=== PATIENT | female | born 1935 | race Caucasian/White ===

== ENCOUNTER → 2016-09-27 | Outpatient (CLI) | payer OTHER ==
[2016-02-14 03:48] VITALS: BP 164/88
--- NOTE | 2016-09-28 14:55 | MG ---
HISTORY: SCREENING Comparison: September 01, 2015 FINDINGS: Bilateral CC and MLO projections of the right and left breast were obtained. Heterogeneously dense fibroglandular tissue is seen to be present. No significant architectural distortion, mass or clust ered microcalcifications can be observed to suggest malignancy. No skin thickening or nipple retrac tion is appreciated. No pathological lymphadenopathy can be identified. Benign-appearing calcifica tions scattered throughout the right and left breasts are observed. IMPRESSION: NO RADIOGRAPHIC EVIDENCE OF MALIGNANCY. ACR CATEGORY 2 - benign findings. FOLLOW-UP EXAM 1 YEAR. Diagnostic CAD was utilized and reviewed. * 0 (ZERO) - ASSESSMENT INCOMPLETE; ADDITIONAL IMAGING IS NEEDED. * 1/1 (ONE) - NEGATIVE. * 2/II (TWO) - BENIGN FINDINGS. * 3/III (THREE) - PROBABLY BENIGN FINDING; SHORT INTERVAL FOLLOW-UP SUGGESTED. * 4/IV (FOUR) - SUSPICIOUS ABNORMALITY; BIOPSY SHOULD BE CONSIDERED. * 5/V - HIGHLY SUSPICIOUS OF MALIGNANCY; BIOPSY SHOULD BE PERFORMED. A NEGATIVE X-RAY REPORT SHOULD NOT DELAY BIOPSY IF A DOMINANT OR CLINICALLY SUSPICIOUS MASS IS PRESENT; 4 TO 8 PERCENT OF CANCERS ARE NOT IDENTIFIED BY X-RAY. A NEG ATIVE REPORT MAY REINFORCE THE CLINICAL IMPRESSION. ADENOSIS AND DENSE BREASTS MAY OBSCURE AN UNDER LYING NEOPLASM. Reported By:
== END ==
LOC: RAD 09:40
PROVIDERS: ATTEND Internal Medicine
DX: Z12.31 Encounter for screening mammogram for malignant neoplasm of breast (principal)
CPT/HCPCS: 77067

== ENCOUNTER 2017-09-04 06:47 | Inpatient (IN) ==
--- NOTE | 2017-09-04 07:05 | DR.GENAD ---
HPI - Nurses notes reviewed Nurses Notes Review: Yes - Source History Provided: Patient, Family Member - Mode of Arrival Mode of Arrival: Wheelchair - Timing Came on: Suddenly - Duration Duration: Constant Duration: Hours - Severity Severity: Moderate <JOHNNA GAMBLE - Last Filed: 09/04/17 08:32> - PCP Primary Care Physician: Joseluis <BILLY GILL - Last Filed: 09/04/17 09:12> PMH - PMH Past Medical History: Arthritis Past Surgical History: Yes Surgical History: Abdominal Surgery, Cholecystectomy, Hysterectomy, Ortho Surgery - Social History Do you use any recreational Drugs:: No <JOHNNA GAMBLE - Last Filed: 09/04/17 08:32> ROS - Review of Systems Constitutional: No Symptoms Reported Eyes: No Symptoms Reported ENTM: No Symptoms Reported Respiratoy: No Symptoms Reported Cardiovascular: No Symptoms Reported Gastrointestinal/Abdominal: No Symptoms Reported Genitourinary: No Symptoms Reported Neurological: No Symptoms Reported Musculoskeletal: Back Pain, Back Integumentary: No Symptoms Reported Hematologic/Lymphatic: No Symptoms Reported All Other Systems: Reviewed and Negative <JOHNNA GAMBLE - Last Filed: 09/04/17 08:32> PE - General Limitations: No Limitations General Appearance: Alert - Head Head Exam: Normal Inspection - Eyes Eye exam: Normal Appearance - ENT ENT Exam: Normal External Ear Exam External Ear Exam: Normal External Inspection TM/Canal Exam: Bilateral Normal Nose Exam: Normal Nose Exam Mouth Exam: Normal Inspection Throat Exam: Normal Inspection - Neck Neck Exam: Trachea Midline - Chest Chest Inspection: Symmetric Chest Wall Rise - Respiratory Respiratory Exam: Normal Lung Sounds Bilat Respiratory Exam: Bilateral Rhonchi, Lower Rhonchi - Cardiovascular Cardiovascular Exam: Regular Rate, Normal Rhythm, Normal Heart Sounds - Abdominal Exam Abdominal Exam: Normal Bowel Sounds, Soft. negative: Tenderness - Extremities Extremities Exam: Normal Inspection - Back Back Exam: Tenderness (C SPIN, T SPINE AND L SPINE TENDERNESS.) - Neurologic Neurological Exam: Alert, Oriented X3 - Psychiatric Psychiatric Exam: Anxious - Skin Skin Exam: Normal Color <JOHNNA GAMBLE - Last Filed: 09/04/17 08:32> - Vital Signs Vitals: Temperature 98.3 F Pulse Rate 68 Respiratory Rate 16 Blood Pressure 132/63 O2 Sat by Pulse Oximetry 100 MDM - Additional Information Additional Information Obtained From: Family - Differential Diagnosis Differential Diagnosis: CONTUSION, STRAIN, SPRAIN, FRACTURE OF THE BACK AND NECK. <JOHNNA GAMBLE - Last Filed: 09/04/17 08:32> Course - Treatment Treatment: SEE ORDERS. - Education/Counseling Education/Counseling: Patient, Family, Education Educated On: Diagnosis <JOHNNA GAMBLE - Last Filed: 09/04/17 08:32> - Reevaluation 1st: Improved (Medicated with dilaudid 1mg IV for pain relief,) - Consultation Called: 09:00 (Dr Huggins agreed to admit for further treatment) <BILLY GILL - Last Filed: 09/04/17 09:12> ROR - Labs Reviewed Result Diagrams: 09/04/17 06:52 09/04/17 06:52 - XRAY XRAY Interpreted by: Radiologist (CT C-spine: No evidence for acute fracture, moderate facet joint osteoarthritis, CT Thoracic spine: Midl compressin of the superior endplate of T9 of unknown age, prominent Schmorl"s node in the superior endplate of T11, Distended esophagus, Lumbar Spine: Old vertebrophasties for old compressin fractures of L2 and L4. No definite acute fracture, Lower Lumbar facet joint osteoarthritis.) <BILLY GILL - Last Filed: 09/04/17 09:12> - Labs Reviewed Laboratory: WBC 6.9 X10^3/uL (3.6-10.0) 09/04/17 06:52 RBC 4.48 X10^6/uL (3.5-5.4) 09/04/17 06:52 Hgb 13.4 g/dL (12.0-16.0) 09/04/17 06:52 Hct 39.2 % (36.0-47.0) 09/04/17 06:52 MCV 87.6 fL (80.0-100.0) 09/04/17 06:52 MCH 30.0 pg (27.0-34.0) 09/04/17 06:52 MCHC 34.2 g/dL (33.0-35.0) 09/04/17 06:52 RDW 13.1 % (11.6-16.5) 09/04/17 06:52 Plt Count 179 X10^3/uL (150.0-450.0) 09/04/17 06:52 MPV 8.5 fL (7.4-11.0) 09/04/17 06:52 Neut % (Auto) 64.9 % (42.0-75.0) 09/04/17 06:52 Lymph % (Auto) 17.5 % (21.0-51.0) L 09/04/17 06:52 [place] % (Auto) 12.4 % (0.0-13.0) 09/04/17 06:52 Eos % (Auto) 4.5 % (0.9-2.9) H 09/04/17 06:52 Baso % (Auto) 0.7 % (0.2-1.0) 09/04/17 06:52 Neut # (Auto) 4.5 x10^3/uL (2.2-4.8) 09/04/17 06:52 Lymph # (Auto) 1.2 X10^3/uL (1.3-2.9) L 09/04/17 06:52 [place] # (Auto) 0.9 x10^3/uL (0.3-0.8) H 09/04/17 06:52 Eos # (Auto) 0.3 x10^3/uL (0.0-0.2) H 09/04/17 06:52 Baso # (Auto) 0.0 X10^3/uL (0.0-0.1) 09/04/17 06:52 Absolute Nucleated RBC 0.1 /100WBC 09/04/17 06:52 Sodium 123 mmol/L (136-145) L* 09/04/17 06:52 Corrected Sodium TNP 09/04/17 06:52 Potassium 3.9 mmol/L (3.5-5.1) 09/04/17 06:52 Chloride 89 mmol/L (98-107) L 09/04/17 06:52 Carbon Dioxide 30.5 mmol/L (21-32) 09/04/17 06:52 BUN 11 mg/dL (7-18) 09/04/17 06:52 Creatinine 0.75 mg/dL (0.55-1.02) 09/04/17 06:52 Est GFR (MDRD) Af Amer > 60 (>60) 09/04/17 06:52 Est GFR (MDRD) Non-Af > 60 (>60) 09/04/17 06:52 Glucose 78 mg/dL (65-99) 09/04/17 06:52 Calcium 8.4 mg/dL (8.5-10.1) L 09/04/17 06:52 Corrected Calcium 9.1 mg/dL (8.5-10.1) 09/04/17 06:52 Total Bilirubin 0.40 mg/dL (0.2-1.0) 09/04/17 06:52 AST 28 Units/L (15-37) 09/04/17 06:52 ALT 37 Units/L (12-78) 09/04/17 06:52 Alkaline Phosphatase 126 Units/L (46-116) H 09/04/17 06:52 Creatine Kinase 54 Units/L (26-192) 09/04/17 06:52 CK-MB (CK-2) 1.0 ng/mL (0-4.0) 09/04/17 06:52 CK/CKMB % Calc 1.9 % (<4) 09/04/17 06:52 Troponin I < 0.02 ng/mL (0-1.5) 09/04/17 06:52 Total Protein 5.9 g/dL (6.4-8.2) L 09/04/17 06:52 Albumin 3.1 g/dL (3.4-5.0) L 09/04/17 06:52 Globulin 2.8 g/dL (2.5-4.5) 09/04/17 06:52 Albumin/Globulin Ratio 1.1 Ratio (1.1-2.1) 09/04/17 06:52 <JOHNNA GAMBLE - Last Filed: 09/04/17 08:32> <BILLY GILL - Last Filed: 09/04/17 09:12> - Diagnosis Discharge Problem: Hyponatremia - Discharge Plan Condition: Stable - Follow ups/Referrals Follow ups/Referrals: Milind Huggins [Primary Care Provider] - 3 days - Instructions
--- NOTE | 2017-09-04 07:52 | CT ---
History: Fall last night with cervical pain Study: CT cervical spine without contrast. Sagittal and coronal reformations were provided. Findings: There is normal alignment without fracture demonstrated. There are prominent osteophytes in the cervical facet joints. There are mild osteophytes about the cervical disc spaces with mild C5-6 disc space narrowing. Impression: 1. No evidence for acute fracture 2. Moderate facet joint osteoarthritis Reported By:
--- NOTE | 2017-09-04 07:59 | CT ---
History: Back pain after fall last night Study: CT thoracic spine without contrast. Sagittal and coronal reformations were provided. Comparison: None Findings: There is normal alignment. There is osteopenia. There is central depression of the superior endplate of T11, as seen on prior exams. There is mild compression of T9 involving the superior endp late. No disc protrusion is suggested. There are mild degenerative osteophytes diffusely. The esophagus is fluid distended. There is a hiatal hernia. Impression: 1. Mild compression of the superior endplate of T9 of unknown age 2. Prominent Schmorl's node in the superior endplate of T11 3. Distended esophagus Reported By:
[2017-09-04 08:00] LABS: BASOPHILS % (AUTO) 0.7 % (0.2-1.0); EOSINOPHILS # (AUTO) 0.3 x10^3/uL (0.0-0.2); EOSINOPHILS % (AUTO) 4.5 % (0.9-2.9); HEMATOCRIT 39.2 % (36.0-47.0); HEMOGLOBIN 13.4 g/dL (12.0-16.0); LYMPHOCYTES # (AUTO) 1.2 X10^3/uL (1.3-2.9); LYMPHOCYTES % (AUTO) 17.5 % (21.0-51.0); MEAN CORPUSCULAR HGB CONC 34.2 g/dL (33.0-35.0); MEAN CORPUSCULAR VOLUME 87.6 fL (80.0-100.0); MEAN PLATELET VOLUME 8.5 fL (7.4-11.0); MONOCYTES # (AUTO) 0.9 x10^3/uL (0.3-0.8); MONOCYTES % (AUTO) 12.4 % (0.0-13.0); NEUTROPHILS # (AUTO) 4.5 x10^3/uL (2.2-4.8); NEUTROPHILS % (AUTO) 64.9 % (42.0-75.0); PLATELET COUNT 179 X10^3/uL (150.0-450.0); RED BLOOD COUNT 4.48 X10^6/uL (3.5-5.4); RED CELL DISTRIBUTION WIDTH 13.1 % (11.6-16.5); WHITE BLOOD COUNT 6.9 X10^3/uL (3.6-10.0)
--- NOTE | 2017-09-04 08:13 | CT ---
History: Fall last night with back pain Study: CT lumbar spine without contrast. Sagittal and coronal reformations were provided. Comparison: MRI lumbar spine dated March 21 2014 Findings: There has been vertebral plasty at L2 and at L4 with compression deformities. These are old burst fractures with mild encroachment into the vertebral canal by the posterior margins of the L2 a nd L4 vertebra. No acute fracture is suggested. There is osteopenia. There are degenerative osteophyt es about the L4-5 facet joints. The sacroiliac joints are unremarkable. There are osteophytes about the L5-S1 facet joints as well. Impression: 1. Old vertebroplasties for old compression fractures of L2 and L4. No definite acute fracture. 2. Lower lumbar facet joint osteoarthritis Reported By:
[2017-09-04 08:22] LABS: ALANINE AMINOTRANSFERASE 37 Units/L (12-78); ALBUMIN 3.1 g/dL (3.4-5.0); ALKALINE PHOSPHATASE 126 Units/L (46-116); ASPARTATE AMINO TRANSFERASE 28 Units/L (15-37); BLOOD UREA NITROGEN 11 mg/dL (7-18); CALCIUM 8.4 mg/dL (8.5-10.1); CARBON DIOXIDE 30.5 mmol/L (21-32); CHLORIDE 89 mmol/L (98-107); CKMB % 1.9 % (<4); COR CA(FOR HYPOALB) 9.1 mg/dL (8.5-10.1); CREATINE KINASE 54 Units/L (26-192); CREATININE 0.75 mg/dL (0.55-1.02); TOTAL PROTEIN 5.9 g/dL (6.4-8.2); TROPONIN I < 0.02 ng/mL (0-1.5); eGFR NON BLACK RACES > 60 (>60)
[2017-09-04 08:23] LABS: SODIUM 123 mmol/L (136-145)
[2017-09-04] MEDS ORDERED: SODIUM CHL HYPERTONIC ** 3% ** 500 ML IV NR (08:43)
[2017-09-04] MEDS ORDERED: MIRALAX POWDER (255 GRAMS BTL) PO PRN (09:18)
[2017-09-04] MEDS ORDERED: PROMETHAZINE 25 MG PO PRN (09:18)
[2017-09-04] MEDS ORDERED: DOCUSATE CALCIUM 240 MG PO PRN (09:18)
[2017-09-04] MEDS ORDERED: ABATACEPT SC SCH (09:30)
[2017-09-04] MEDS ORDERED: PHENERGAN TAB 25 MG PO ONE (09:46)
[2017-09-04] MEDS: DILAUDID INJ IVP PRN ×2 (09:51→19:54)
[2017-09-04 11:01] LABS: BILIRUBIN,URINE NEGATIVE (NEGATIVE); BLOOD/HEMOGLOBIN,URINE NEGATIVE (NEGATIVE); GLUCOSE, URINE NEGATIVE (NEGATIVE); KETONES,URINE NEGATIVE (NEGATIVE); LEUKOCYTE ESTERASE ,URINE NEGATIVE (NEGATIVE); NITRITES,URINE NEGATIVE (NEGATIVE); PROTEIN,URINE NEGATIVE (NEGATIVE); UROBILINOGEN,URINE NORMAL (NORMAL)
[2017-09-04] MEDS ORDERED: COLACE CAP 100 MG PO PRN (11:02)
[2017-09-04 11:03] LABS: APPEARANCE,URINE CLEAR (CLEAR); COLOR,URINE YELLOW (YELLOW)
[2017-09-04] MEDS ORDERED: PHENERGAN TAB 25 MG PO PRN (11:04)
[2017-09-04] MEDS ORDERED: HumuLIN R ONE (11:11)
[2017-09-04 12:48] LABS: BLOOD UREA NITROGEN 10 mg/dL (7-18); CALCIUM 7.9 mg/dL (8.5-10.1); CARBON DIOXIDE 33.8 mmol/L (21-32); CHLORIDE 92 mmol/L (98-107); CREATININE 0.65 mg/dL (0.55-1.02); SODIUM 126 mmol/L (136-145); eGFR NON BLACK RACES > 60 (>60)
[2017-09-04 16:51] LABS: BLOOD UREA NITROGEN 9 mg/dL (7-18); CARBON DIOXIDE 27.6 mmol/L (21-32); CHLORIDE 95 mmol/L (98-107); CREATININE 0.73 mg/dL (0.55-1.02); SODIUM 129 mmol/L (136-145); eGFR NON BLACK RACES > 60 (>60)
[2017-09-04 17:53] VITALS: BMI 22.6
[2017-09-04] MEDS ORDERED: PREVNAR 13 IM ONE (17:54)
[2017-09-04] MEDS: BENADRYL INJ 50 MG VIAL IV PRN (19:55)
[2017-09-04] MEDS ORDERED: PATIENT'S HOME MEDICATION (Clonazepam [Clonazepam] 2 MG) PO SCH (21:00)
[2017-09-04] MEDS: KLONOPIN TAB 1 MG PO SCH (21:21)
[2017-09-04 21:22] LABS: BLOOD UREA NITROGEN 8 mg/dL (7-18); CALCIUM 7.8 mg/dL (8.5-10.1); CARBON DIOXIDE 28.8 mmol/L (21-32); CHLORIDE 99 mmol/L (98-107); COR NA(FOR HYPERGLY) 132 mmol/L (136-145); CREATININE 0.69 mg/dL (0.55-1.02); SODIUM 132 mmol/L (136-145); eGFR NON BLACK RACES > 60 (>60)
[2017-09-04] MEDS: ULTRAM PO SCH (21:23)
[2017-09-05 00:58] LABS: BLOOD UREA NITROGEN 8 mg/dL (7-18); CALCIUM 7.8 mg/dL (8.5-10.1); CARBON DIOXIDE 27.1 mmol/L (21-32); CHLORIDE 100 mmol/L (98-107); COR NA(FOR HYPERGLY) 133 mmol/L (136-145); CREATININE 0.77 mg/dL (0.55-1.02); SODIUM 132 mmol/L (136-145); eGFR NON BLACK RACES > 60 (>60)
[2017-09-05] MEDS: DILAUDID INJ IVP PRN ×2 (01:22→11:50)
[2017-09-05 06:25] LABS: BASOPHILS % (AUTO) 0.8 % (0.2-1.0); EOSINOPHILS # (AUTO) 0.2 x10^3/uL (0.0-0.2); HEMATOCRIT 35.7 % (36.0-47.0); HEMOGLOBIN 12.1 g/dL (12.0-16.0); LYMPHOCYTES % (AUTO) 23.6 % (21.0-51.0); MEAN CORPUSCULAR HEMOGLOBIN 30.2 pg (27.0-34.0); MEAN CORPUSCULAR HGB CONC 33.9 g/dL (33.0-35.0); MEAN CORPUSCULAR VOLUME 88.9 fL (80.0-100.0); MEAN PLATELET VOLUME 8.8 fL (7.4-11.0); MONOCYTES # (AUTO) 0.6 x10^3/uL (0.3-0.8); NEUTROPHILS # (AUTO) 2.4 x10^3/uL (2.2-4.8); NEUTROPHILS % (AUTO) 55.6 % (42.0-75.0); PLATELET COUNT 171 X10^3/uL (150.0-450.0); RED BLOOD COUNT 4.01 X10^6/uL (3.5-5.4); RED CELL DISTRIBUTION WIDTH 13.2 % (11.6-16.5); WHITE BLOOD COUNT 4.3 X10^3/uL (3.6-10.0)
[2017-09-05 06:38] LABS: ALANINE AMINOTRANSFERASE 37 Units/L (12-78); ALBUMIN 2.6 g/dL (3.4-5.0); ALKALINE PHOSPHATASE 129 Units/L (46-116); ASPARTATE AMINO TRANSFERASE 29 Units/L (15-37); BLOOD UREA NITROGEN 7 mg/dL (7-18); CALCIUM 7.8 mg/dL (8.5-10.1); CARBON DIOXIDE 29.2 mmol/L (21-32); CHLORIDE 99 mmol/L (98-107); COR CA(FOR HYPOALB) 8.9 mg/dL (8.5-10.1); CREATININE 0.67 mg/dL (0.55-1.02); SODIUM 131 mmol/L (136-145); TOTAL PROTEIN 5.3 g/dL (6.4-8.2); eGFR NON BLACK RACES > 60 (>60)
[2017-09-05] MEDS ORDERED: DICLOFENAC SODIUM PO SCH (09:00)
[2017-09-05] MEDS: ELAVIL PO SCH (09:00)
[2017-09-05] MEDS ORDERED: PATIENT'S HOME MEDICATION (Cyanocobalamin-Cobamamide [B12] 1 TAB) SL SCH (09:00)
[2017-09-05] MEDS: ULTRAM PO SCH ×2 (09:30→21:21)
[2017-09-05] MEDS: FOLIC ACID TAB 1 MG PO SCH (09:30)
[2017-09-05] MEDS: SYNTHROID 50 mcg TAB PO SCH (09:30)
[2017-09-05] MEDS: PROTONIX TAB 40 MG PO SCH (09:30)
[2017-09-05] MEDS: NORVASC TAB 2.5 MG PO SCH (09:30)
[2017-09-05] MEDS ORDERED: NORVASC TAB 2.5 MG ONE (09:35)
--- NOTE | 2017-09-05 10:08 | DR.H&P ---
H&P - History & Physical for Day of: H&P Date: 09/04/17 - Chief Complaint Chief Complaint: WEAKNESS, FALLS - History of Present Illness History of Present Illness: IS A 81 YEAR OLD PATIENT OF OURS WHO PRESENTED TO THE EMERGENCY ROOM WITH COMPLAINTS OF GENERALIZED WEAKNESS AND FALLS. PATIENT REPORTS THAT SHE FELL APPROXIMATELY 7 HOURS PRIOR TO ARRIVAL AT THE ER. SHE REPORTS LANDING ON HER BOTTOM AND NOW HAS SEVERE PAIN FROM HER LUMBAR AREA TO HER NECK. SHE RATES PAIN A 8/10. SHE ALSO REPORTS NAUSEA, BUT DENIES VOMITING. ON ARRIVAL, VITALS WERE 98.3-68-16-100%-132/63. LABS WERE OBTAINED. ABNORMAL LAB VALUES INCLUDE THE FOLLOWING: SODIUM 123, CHLORIDE 89, CALCIUM 8.4, ALKALINE PHOSPHATASE 126, TOTAL PROTEIN 5.9, ALBUMIN 3.1. A CERVICAL SPINE CT WAS OBTAINED AND REVEALED: No evidence for acute fracture. Moderate facet joint osteoarthritis. LUMBAR SPINE CT REVEALED: Old vertebroplasties for old compression fractures of L2 and L4. No definite acute fracture. Lower lumbar facet joint osteoarthritis. THORACIC SPINE CT REVEALED: Mild compression of the superior endplate of T9 of unknown age. Prominent Schmorl's node in the superior endplate of T1. Distended esophagus. EKG REVEALED SINUS RHYTHM WITH HR 65. SHE WAS STARTED ON 500ML HYPERTONIC SALINE IN THE ER. SODIUM WAS NOTED TO INCREASE TO 129. PATIENT ADMITTED FOR FURTHER EVALUATION AND TREATMENT OF HYPONATREMIA. WE PLAN TO CONTINUE TO MONITOR HER SODIUM LEVELS. OTHERWISE, WE WILL FOLLOW UP WITH PATIENT IN THE MORNING. - Past Medical History Past Medical History: Anemia, Arthritis, GERD, Hypertension, Hypothyroidism, Seizures Additional Medical History: DIVERTICULOSIS, CONSTIPATION, UTIs, RHEUMATOID ARTHRITIS, OSTEOPOROSIS - Past Surgical History Surgical History: Appendectomy, Cholecystectomy, Hysterectomy, Ortho Surgery Additional Surgical History: Rt rib resection. Ajit. Ortiz 2 with gastrojejunostomy and jejunostomy. Rt. foot bunionectomy. Bilateral Cataracts. Evacuate Left subdural hematoma. Kyphoplasty - Family History Family Medical History: Diabetes Mellitus, Cancer, [place], Hypertension - Social History Does patient currently use any type of tobacco product: No Have you used tobacco products in the last 12 months: No Type of Tobacco Use: None Does any household member use tobacco: No Alcohol Use: None Drug Use: Prescription Drugs - Medications Home Medications: codeine Allergy (Verified 09/04/17 06:49) metoclopramide [From Reglan] Allergy (Verified 09/04/17 06:49) CONTINUE taking the following medications abatacept [Orencia] 500 mg MONTHLY 09/04/17 [History] amitriptyline 25 mg PO DAILY 09/04/17 [History] amlodipine 2.5 mg PO DAILY 09/04/17 [History] clonazepam 2 mg PO HS 09/04/17 [History] clonazepam 2 mg PO HS 09/04/17 [History] cyanocobalamin-cobamamide [B12] 1 tab SUBLINGUAL DAILY 09/04/17 [History] diclofenac sodium 50 mg PO DAILY 09/04/17 [History] docusate calcium 240 mg PO BID PRN 09/04/17 [History] folic acid 1 mg PO DAILY 09/04/17 [History] levothyroxine 50 mcg PO DAILY 09/04/17 [History] pantoprazole 40 mg PO DAILY 09/04/17 [History] polyethylene glycol 3350 [Miralax] 1 cap PO PRN PRN 09/04/17 [History] promethazine 25 mg PO Q4-6H PRN 09/04/17 [History] tramadol 50 mg PO BID PRN 09/04/17 [History] vit D3-vit [id number] 1 tab PO DAILY 09/04/17 [History] - Review of Systems Constitutional: Weakness Eyes: No Symptoms Reported ENT: No Symptoms Reported Respiratory: No Symptoms Reported Cardiovascular: No Symptoms Reported Gastrointestinal: Nausea. denies: Abdominal Pain, Diarrhea, Constipation Genitourinary: No Symptoms Reported Musculoskeletal: Back Pain, Neck Pain Skin: No Symptoms Reported Neurological: Weakness - Physical Exam Vital Signs: Temperature 97.5 F Pulse Rate [Right Brachial] 71 Pulse Rate [Left Brachial] 65 Pulse Rate 68 Respiratory Rate 18 Blood Pressure [Right Arm] 115/59 Blood Pressure [Left Arm] 101/58 Blood Pressure 132/63 O2 Sat by Pulse Oximetry 96 Oriented: Normal Eyes: Normal Ear: Normal Nose: Normal Throat: Normal Respiratory: Clear Throughout Cardiovascular: Normal. negative: S3, S4, Murmur, Edema : Normal Auscultation: Bowel Sounds: Normal Palpation: Normal Tenderness: Normal Skin: Normal Musculoskeletal: Back:Thoracic, Back:Lumbar, Tender Psychiatric: Normal Mood Description: Calm Affect: Normal Speech Pattern: Clear - Assessment/Plan (1) Hyponatremia Status: Acute Plan: ADMIT - Allergies Allergies/Adverse Reactions: Allergies Allergy/AdvReac Type Severity Reaction Status Date / Time codeine Allergy Verified 09/04/17 06:49 metoclopramide [From Reglan] Allergy Verified 09/04/17 06:49
[2017-09-05 10:30] LABS: FREE T4 (FREE THYROXINE) 1.21 ng/dL (0.76-1.46)
[2017-09-05] MEDS: VIT D3 VIT K BERBERINE HOPS PO SCH (10:31)
--- NOTE | 2017-09-05 11:28 | PCM.PROG ---
Progress Note - Progress Note for Day of Date: 09/05/17 - Subjective Subjective: WAS ADMITTED FOR HYPONATREMIA AND BACK PAIN FOLLOWING A FALL AT HOME. TODAY, SHE IS ALERT AND ORIENTED, LYING IN BED ON MORNING ROUNDS. SHE IS NOTED WITH COMPLAINTS OF GENERALIZED WEAKNESS AND SEVERE PAIN TO THE LOWER AND MIDDLE OF BACK. ON EXAMINATION, HEART IS REGULAR IN RATE AND RHYTHM. BILATERAL LUNGS ARE NOTED WITH DIMINISHED LUNG SOUNDS THROUGHOUT. ABDOMEN IS FLAT, SOFT, AND NON-TENDER WITH NORMAL BOWEL SOUNDS IN ALL QUADRANTS. PATIENT IS NOTED WITH MODERATE TENDERNESS TO THE THORACIC AND LUMBAR SPINE. DECREASED RANGE OF MOTION NOTED. PATIENT REPORTS THAT SHE IS UNABLE TO AMBULATE WITHOUT SEVERE PAIN. HER VITALS TODAY ARE 97.5-71-18-96%-115/59. LABS WERE OBTAINED. ABNORMAL LAB VALUES INCLUDE THE FOLLOWING: HCT 35.7, SODIUM 131, CALCIUM 7.8, ALK PHOS 129, TOTAL PROTEIN 5.3, ALBUMIN 2.6. TODAY, WE PLAN TO OBTAIN AN MRI OR THE THORACIC AND LUMBAR SPINE. WE WILL START TORADOL 15MG IV Q6H KUSUM. OTHERWISE WE WILL CONTINUE WITH CURRENT PLAN OF CARE AND CONTINUE TO MONITOR HER SODIUM LEVELS. - Past Medical Family Social History Past Med/Fam/Surg Hx: No changes since H&P Allergies: Allergies codeine Allergy (Verified 09/04/17 06:49) metoclopramide [From Reglan] Allergy (Verified 09/04/17 06:49) - Review of Systems ROS: No change since H&P - Vital Signs and I&O's Vital Signs: Temperature 98.6 F Pulse Rate [Right Brachial] 69 Pulse Rate [Left Brachial] 65 Pulse Rate 68 Respiratory Rate 20 Blood Pressure [Right Arm] 149/72 Blood Pressure [Left Arm] 101/58 Blood Pressure 132/63 O2 Sat by Pulse Oximetry 96 Intake and Output: Intake & Output 09/02/17 09/03/17 09/04/17 09/05/17 11:59 11:59 11:59 11:59 Intake Total 2032 Output Total 1100 / 1099 1850 / 1850 Balance -1100 / -1100 183 / 183 - Physical Exam Oriented: Normal Eyes: Normal Ear: Normal Nose: Normal Throat: Normal Cardiovascular: Normal. negative: S3, S4, Murmur, Edema : Normal Auscultation: Bowel Sounds: Normal Palpation: Normal Tenderness: Normal Skin: Normal Musculoskeletal: Back:Thoracic, Back:Lumbar, Tender Psychiatric: Normal Mood Description: Calm Affect: Normal Speech Pattern: Clear - Laboratory and Diagnostics Result Diagrams: 09/05/17 05:25 09/05/17 05:25 Labs: Laboratory WBC 4.3 X10^3/uL (3.6-10.0) 09/05/17 05:25 RBC 4.01 X10^6/uL (3.5-5.4) 09/05/17 05:25 Hgb 12.1 g/dL (12.0-16.0) 09/05/17 05:25 Hct 35.7 % (36.0-47.0) L 09/05/17 05:25 MCV 88.9 fL (80.0-100.0) 09/05/17 05:25 MCH 30.2 pg (27.0-34.0) 09/05/17 05:25 MCHC 33.9 g/dL (33.0-35.0) 09/05/17 05:25 RDW 13.2 % (11.6-16.5) 09/05/17 05:25 Plt Count 171 X10^3/uL (150.0-450.0) 09/05/17 05:25 MPV 8.8 fL (7.4-11.0) 09/05/17 05:25 Neut % (Auto) 55.6 % (42.0-75.0) 09/05/17 05:25 Lymph % (Auto) 23.6 % (21.0-51.0) 09/05/17 05:25 [place] % (Auto) 15.0 % (0.0-13.0) H 09/05/17 05:25 Eos % (Auto) 5.0 % (0.9-2.9) H 09/05/17 05:25 Baso % (Auto) 0.8 % (0.2-1.0) 09/05/17 05:25 Neut # (Auto) 2.4 x10^3/uL (2.2-4.8) 09/05/17 05:25 Lymph # (Auto) 1.0 X10^3/uL (1.3-2.9) L 09/05/17 05:25 [place] # (Auto) 0.6 x10^3/uL (0.3-0.8) 09/05/17 05:25 Eos # (Auto) 0.2 x10^3/uL (0.0-0.2) 09/05/17 05:25 Baso # (Auto) 0.0 X10^3/uL (0.0-0.1) 09/05/17 05:25 Absolute Nucleated RBC 0.0 /100WBC 09/05/17 05:25 Sodium 131 mmol/L (136-145) L 09/05/17 05:25 Corrected Sodium TNP 09/05/17 05:25 Potassium 4.2 mmol/L (3.5-5.1) 09/05/17 05:25 Chloride 99 mmol/L (98-107) 09/05/17 05:25 Carbon Dioxide 29.2 mmol/L (21-32) 09/05/17 05:25 BUN 7 mg/dL (7-18) 09/05/17 05:25 Creatinine 0.67 mg/dL (0.55-1.02) 09/05/17 05:25 Est GFR (MDRD) Af Amer > 60 (>60) 09/05/17 05:25 Est GFR (MDRD) Non-Af > 60 (>60) 09/05/17 05:25 Glucose 84 mg/dL (65-99) 09/05/17 05:25 Calcium 7.8 mg/dL (8.5-10.1) L 09/05/17 05:25 Corrected Calcium 8.9 mg/dL (8.5-10.1) 09/05/17 05:25 Total Bilirubin 0.30 mg/dL (0.2-1.0) 09/05/17 05:25 AST 29 Units/L (15-37) 09/05/17 05:25 ALT 37 Units/L (12-78) 09/05/17 05:25 Alkaline Phosphatase 129 Units/L (46-116) H 09/05/17 05:25 Creatine Kinase 54 Units/L (26-192) 09/04/17 06:52 CK-MB (CK-2) 1.0 ng/mL (0-4.0) 09/04/17 06:52 CK/CKMB % Calc 1.9 % (<4) 09/04/17 06:52 Troponin I < 0.02 ng/mL (0-1.5) 09/04/17 06:52 Total Protein 5.3 g/dL (6.4-8.2) L 09/05/17 05:25 Albumin 2.6 g/dL (3.4-5.0) L 09/05/17 05:25 Globulin 2.7 g/dL (2.5-4.5) 09/05/17 05:25 Albumin/Globulin Ratio 1.0 Ratio (1.1-2.1) L 09/05/17 05:25 Vitamin B12 1264 pg/mL (193-986) H 09/05/17 05:25 Free T4 1.21 ng/dL (0.76-1.46) 09/05/17 05:25 TSH 3rd Generation 3.810 uIU/mL (0.358-3.74) H 09/05/17 05:25 Specimen Type Catherized urine 09/04/17 10:45 Urine Color Yellow (YELLOW) 09/04/17 10:45 Urine Appearance Clear (CLEAR) 09/04/17 10:45 Urine pH 7.0 (5.0 - 8.0) 09/04/17 10:45 Ur Specific [place] 1.005 (1.000-1.030) 09/04/17 10:45 Urine Protein Negative (NEGATIVE) 09/04/17 10:45 Urine Glucose (UA) Negative (NEGATIVE) 09/04/17 10:45 Urine Ketones Negative (NEGATIVE) 09/04/17 10:45 Urine Occult Blood Negative (NEGATIVE) 09/04/17 10:45 Urine Nitrite Negative (NEGATIVE) 09/04/17 10:45 Urine Bilirubin Negative (NEGATIVE) 09/04/17 10:45 Urine Urobilinogen Normal (NORMAL) 09/04/17 10:45 Ur Leukocyte Esterase Negative (NEGATIVE) 09/04/17 10:45 TSH Receptor Antibody Cancelled 09/05/17 05:25 - Plan (1) Hyponatremia Status: Acute Plan: ADMIT (2) Back pain Status: Acute Qualifiers: Back pain location: thoracic back pain Chronicity: acute Back pain laterality: midline Qualified Code(s): M54.6 - Pain in thoracic spine Plan: OBTAIN LUMBAR AND THORACIC MRI, TORADOL 15MG IV Q6H KUSUM, CONTINUE DILAUDID PRN, CONTINUE TO MONITOR
[2017-09-05] MEDS: BENADRYL INJ 50 MG VIAL IV PRN (11:50)
[2017-09-05] MEDS: TORADOL 15 MG VIAL IVP SCH ×2 (14:33→17:29)
[2017-09-05] MEDS: NS 1000 ML 1,000 ML IV SCH (14:34)
--- NOTE | 2017-09-05 14:57 | MRI ---
HISTORY: Severe back pain following fall Monday Study: Noncontrast MRI of the thoracic spine Comparison: Noncontrast CT scan of the thoracic spine done 09/04/2017. Technique: Multiple imaging planes and pulse sequences were utilized in evaluating the thoracic spine by magnetic resonance imaging. Findings: There is an acute or subacute biconcave compression fracture at the T11 level. The T11 central verteb ral body height has been reduced to 60% of the adjacent T12 vertebral body height. No other acute fr actures are seen in the thoracic spine. There is no evidence of significant retropulsion of posterior bony elements. Small amount of paraspinous fluid is present at the T11 level. There are small bilate ral pleural effusions. The thoracic spinal cord is normal. Upper endplate Schmorl's nodes are present T9. A 1 cm Tarlov cyst is present on the left at the T11-12 level laterally. Small Tarlov cysts are present at the T7-[address] level. As noted on CT scan, the esophagus is fluid distended with a hiatal herni a. IMPRESSION: Acute or subacute by concave compression fracture at the T11 level as described. Small amount of flui d signal is seen adjacent to the T11 vertebra. No evidence of significant retropulsion of bony elemen ts is seen and there is no indication of central spinal stenosis at any thoracic level. Multilevel Tarlov cysts. Small bilateral pleural effusions. Fluid filled esophagus with hiatal hernia. Reported By:
--- NOTE | 2017-09-05 15:10 | MRI ---
MRI lumbar spine without contrast indication: Severe back pain after fall Monday Comparison: CT 09/04/2017 Technique: Multiplanar multi sequence MR images of the lumbar spine were obtained without contrast. Findings: There is mild lumbar dextroscoliosis. The AP alignment is within normal limits. There are 6 lumbar type vertebrae, with the 1st non rib-bearing vertebra labeled as L1. Acute to subacute compre ssion fracture of T11 is described separately. No acute lumbar spine fracture is observed. There are chronic compression fractures of L2 and L4, status post vertebroplasty. There are multilevel degenera tive changes, discussed on a level by level basis below. The conus terminates at L2. The cauda equina is grossly normal. The paraspinous soft tissues are grossly unremarkable. T12-L1: No significant foraminal or canal narrowing. L1-2: No significant foraminal or canal narrowing. L2-3: Broad-based disc-osteophyte complex and bilateral facet arthropathy results in moderate bilater al neural foraminal narrowing, worse on the left. Mild spinal canal narrowing. L3-4: There is chronic L4 compression fracture with mild retropulsion of the superior L4 endplate, wi th bilateral facet arthropathy resulting in [id number] bilateral facet arthropathy and mild spi nal canal narrowing. L4-5: Mild broad-based disc bulge and moderate bilateral facet arthropathy result in mild to moderate neural foraminal narrowing bilaterally, with mild spinal canal narrowing. L5-L6: Mild central disc bulge with moderate facet arthropathy, resulting in mild bilateral neural fo raminal narrowing, with minimal spinal canal narrowing. Impression: No acute lumbar spine fracture or subluxation. Acute/subacute T11 compression fracture, see separate thoracic MRI. Multilevel degenerative changes of the thoracic spine as above, with mild associated with scoliosis. Reported By:
[2017-09-05] MEDS: KLONOPIN TAB 1 MG PO SCH (21:21)
[2017-09-06] MEDS: TORADOL 15 MG VIAL IVP SCH ×3 (00:07→11:54)
[2017-09-06] MEDS: NS 1000 ML 1,000 ML IV SCH (01:00)
[2017-09-06 05:39] LABS: BASOPHILS # (AUTO) 0.1 X10^3/uL (0.0-0.1); EOSINOPHILS # (AUTO) 0.3 x10^3/uL (0.0-0.2); EOSINOPHILS % (AUTO) 6.2 % (0.9-2.9); HEMATOCRIT 33.2 % (36.0-47.0); HEMOGLOBIN 11.2 g/dL (12.0-16.0); LYMPHOCYTES # (AUTO) 1.2 X10^3/uL (1.3-2.9); LYMPHOCYTES % (AUTO) 24.1 % (21.0-51.0); MEAN CORPUSCULAR HEMOGLOBIN 30.5 pg (27.0-34.0); MEAN CORPUSCULAR HGB CONC 33.9 g/dL (33.0-35.0); MEAN CORPUSCULAR VOLUME 90.1 fL (80.0-100.0); MEAN PLATELET VOLUME 8.7 fL (7.4-11.0); MONOCYTES # (AUTO) 0.6 x10^3/uL (0.3-0.8); MONOCYTES % (AUTO) 12.8 % (0.0-13.0); NEUTROPHILS # (AUTO) 2.8 x10^3/uL (2.2-4.8); NEUTROPHILS % (AUTO) 55.9 % (42.0-75.0); PLATELET COUNT 167 X10^3/uL (150.0-450.0); RED BLOOD COUNT 3.68 X10^6/uL (3.5-5.4); RED CELL DISTRIBUTION WIDTH 13.3 % (11.6-16.5); WHITE BLOOD COUNT 4.9 X10^3/uL (3.6-10.0)
[2017-09-06 05:44] LABS: ALANINE AMINOTRANSFERASE 31 Units/L (12-78); ALBUMIN 2.3 g/dL (3.4-5.0); ALKALINE PHOSPHATASE 109 Units/L (46-116); ASPARTATE AMINO TRANSFERASE 23 Units/L (15-37); BLOOD UREA NITROGEN 8 mg/dL (7-18); CALCIUM 7.8 mg/dL (8.5-10.1); CARBON DIOXIDE 29.8 mmol/L (21-32); CHLORIDE 100 mmol/L (98-107); COR CA(FOR HYPOALB) 9.2 mg/dL (8.5-10.1); CREATININE 0.79 mg/dL (0.55-1.02); SODIUM 131 mmol/L (136-145); TOTAL PROTEIN 4.7 g/dL (6.4-8.2); eGFR NON BLACK RACES > 60 (>60)
[2017-09-06] MEDS ORDERED: NORVASC TAB 2.5 MG ONE (07:28)
[2017-09-06] MEDS: ELAVIL PO SCH (08:58)
[2017-09-06] MEDS: NORVASC TAB 2.5 MG PO SCH (08:58)
[2017-09-06] MEDS: SYNTHROID 50 mcg TAB PO SCH (08:58)
[2017-09-06] MEDS: ULTRAM PO SCH (08:58)
[2017-09-06] MEDS: PROTONIX TAB 40 MG PO SCH (08:58)
[2017-09-06] MEDS: FOLIC ACID TAB 1 MG PO SCH (08:58)
[2017-09-06] MEDS: VIT D3 VIT K BERBERINE HOPS PO SCH (11:53)
[2017-09-06 12:23] VITALS: BP 110/67
[2017-09-07] MEDS ORDERED: SYNTHROID 50 mcg TAB PO SCH (07:30)
--- NOTE | 2017-10-02 03:24 | DR.CARTERD ---
- Discharge Summary for: Discharge Summary for Date of:: 09/06/17 - Admission Date Date of Admission: 09/04/17 - Admission Diagnoses Admission Diagnosis: (1) Hyponatremia (2) Back pain - Discharge Date Discharge Date: 09/06/17 - Discharge Diagnoses Discharge Diagnosis: (1) Hyponatremia (2) Acute compression fracture of thoracic spine (3) Back pain - Hospital Course Hospital Course: DAY ONE, MS. RODRIGUEZ IS A 81 YEAR OLD PATIENT OF OURS WHO PRESENTED TO THE EMERGENCY ROOM WITH COMPLAINTS OF GENERALIZED WEAKNESS AND FALLS. PATIENT REPORTED THAT SHE FELL APPROXIMATELY 7 HOURS PRIOR TO ARRIVAL AT HOME. SHE REPORTED LANDING ON HER BOTTOM AND REPORTED SEVERE PAIN FROM HER LUMBAR AREA TO HER NECK. SHE RATED PAIN A 8/10. SHE ALSO REPORTED NAUSEA, BUT DENIED VOMITING. ON ARRIVAL, VITALS WERE 98.3-68-16-100%-132/63. LABS WERE OBTAINED. ABNORMAL LAB VALUES INCLUDED THE FOLLOWING: SODIUM 123, CHLORIDE 89, CALCIUM 8.4, ALKALINE PHOSPHATASE 126, TOTAL PROTEIN 5.9, ALBUMIN 3.1. A CERVICAL SPINE CT WAS OBTAINED AND REVEALED: NO EVIDENCE FOR ACUTE FRACTURE; MODERATE FACET JOINT OSTEOARTHRITIS. LUMBAR SPINE CT REVEALED: OLD VETERBROPLASTIES FOR OLD COMPRESSION FRACTURES OF L2 AND L4; NO DEFINITE ACUTE FRACTURE; LOWER LUMBAR FACET JOINT OSTEOARTHRITIS. 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 EKG REVEALED SINUS RHYTHM WITH HR 65. SHE WAS STARTED ON 500ML HYPERTONIC SALINE IN THE ER. SODIUM WAS NOTED TO INCREASE TO 129. PATIENT ADMITTED FOR FURTHER EVALUATION AND TREATMENT OF HYPONATREMIA. WE CONTINUED TO MONITOR HER SODIUM LEVELS. DAY TWO, MS. RODRIGUEZ WAS ADMITTED FOR HYPONATREMIA AND BACK PAIN FOLLOWING A FALL AT HOME. SHE WAS ALERT AND ORIENTED, LYING IN BED ON MORNING ROUNDS. SHE WAS NOTED WITH COMPLAINTS OF GENERALIZED WEAKNESS AND SEVERE PAIN TO THE LOWER AND MIDDLE OF BACK. ON EXAMINATION, HEART WAS REGULAR IN RATE AND RHYTHM. BILATERAL LUNGS WERE NOTED WITH DIMINISHED LUNG SOUNDS THROUGHOUT. ABDOMEN WAS FLAT, SOFT, AND NON-TENDER WITH NORMAL BOWEL SOUNDS IN ALL QUADRANTS. PATIENT WAS NOTED WITH MODERATE TENDERNESS TO THE THORACIC AND LUMBAR SPINE. DECREASED RANGE OF MOTION NOTED. PATIENT REPORTED THAT SHE WAS UNABLE TO AMBULATE WITHOUT SEVERE PAIN. HER VITALS WERE 97.5-71-18-96%-115/59. LABS WERE OBTAINED. ABNORMAL LAB VALUES INCLUDED THE FOLLOWING: HCT 35.7, SODIUM 131, CALCIUM 7.8, ALK PHOS 129, TOTAL PROTEIN 5.3, ALBUMIN 2.6. WE STARTED TORADOL 15MG IV Q6H KUSUM AND CONTINUED TO MONITOR HER SODIUM LEVELS. DAY THREE, PATIENT REPORTED SHE WAS FEELING BETTER. SHE REPORTED BACK PAIN WAS CONTROLLED WITH ORAL PAIN MEDICATION. MRI'S WERE OBTAINED. MRI OF LUMBAR SPINE REPORTED NO ACUTE LUMBAR SPINE FRACTURE OR SUBLUXATION; ACUTE/SUBACUTE T11 COMPRESSION FRACTURE; MULTILEVEL DEGENERATIVE CHANGES OF THE THORACIC SPINE WITH MILD ASSOCIATED WITH SCOLIOSIS. MRI OF THORACIC SPINE REPORTED ACUTE OR SUBACUTE BY CONCAVE COMPRESSION FRACTURE AT THE T11 LEVEL; SMALL AMOUNT OF FLUID SIGNAL IS SEEN ADJACENT TO THE T11 VERTEBRA; NO EVIDENCE OF SIGNIFICANT RETROPULSION OF BONY ELEMENTS IS SEEN AND THERE IS NO INDICATION OF CENTRAL SPINAL STENOSIS AT ANY THORACIC LEVEL; MULTILEVEL TARLOV CYSTS; SMALL BILATERAL PLEURAL EFFUSIONS; FLUID FILLED ESOPHAGUS WITH HIATAL HERNIA. VITAL SIGNS STABLE. LABS WNL. WE PLANNED FOR DISCHARGE WITH FOLLOW UP WITH DR. HALE FOR COMPRESSION FRACTURE. INSTRUCTIONS FOR MEDICATIONS AND FOLLOW UP WERE DISCUSSED WITH PATIENT AND FAMILY, BOTH VOICED UNDERSTANDING. PATIENT DISCHARGED HOME IN STABLE CONDITION WITH FAMILY. - Discharge Medications Discharge Medications: Home Medication List abatacept [Orencia] 500 mg MONTHLY 09/04/17 [History] amitriptyline 25 mg PO DAILY 09/04/17 [History] amlodipine 2.5 mg PO DAILY 09/04/17 [History] clonazepam 2 mg PO HS 09/04/17 [History] clonazepam 2 mg PO HS 09/04/17 [History] cyanocobalamin-cobamamide [B12] 1 tab SUBLINGUAL DAILY 09/04/17 [History] diclofenac sodium 50 mg PO DAILY 09/04/17 [History] docusate calcium 240 mg PO BID PRN 09/04/17 [History] folic acid 1 mg PO DAILY 09/04/17 [History] levothyroxine 50 mcg PO DAILY 09/04/17 [History] polyethylene glycol 3350 [Miralax] 1 cap PO PRN PRN 09/04/17 [History] tramadol 50 mg PO BID PRN 09/04/17 [History] vit D3-vit [id number] 1 tab PO DAILY 09/04/17 [History] famotidine [Pepcid] 40 mg PO DAILY #30 tab 09/06/17 [Rx] ketorolac 20 mg PO Q6H #40 tab 09/06/17 [Rx] promethazine 25 mg PO Q4H PRN #30 tab 09/06/17 [Rx] Prescriptions: famotidine [Pepcid] Milind Huggins ketorolac Milind Huggins promethazine Milind Huggins - Discharge Disposition Discharge Disposition: PATIENT IS TO FOLLOW UP IN OUR OFFICE IN ONE WEEK. PATIENT IS TO SCHEDULE APPOINTMENT WITH DR. HALE FOR COMPRESSION FRACTURE.
== END 2017-09-06 12:55 | disposition home or self-care (01) | DRG 641 ==
LOC: ER 06:47 → MED/SURG 10:44
PROVIDERS: ADMIT Internal Medicine; ATTEND Internal Medicine
DX: I10 Essential (primary) hypertension; W18.39XA Other fall on same level, initial encounter; R26.89 Other abnormalities of gait and mobility; R53.1 Weakness; M54.89 Other dorsalgia; E87.1 Hypo-osmolality and hyponatremia; G40.89 Other seizures; K21.9 Gastro-esophageal reflux disease without esophagitis; E03.8 Other specified hypothyroidism
CPT/HCPCS: 36415; 51702; 72125; 72128; 72131; 72146; 72148; 80048; 80053; 81003; 82550; 82553; 82607; 84439; 84443; 84484; 85025; 93005; 96365; 96367; 96374; 97116; 97163; 97166; 97530; 97535; 99284; Q0169; J1170; J1200; J1815; J1885; J7030; J7131

== ENCOUNTER 2018-03-07 09:15 | Inpatient (IN) ==
[2018-03-07 10:09] LABS: BASOPHILS # (AUTO) 0.1 X10^3/uL (0.0-0.1); EOSINOPHILS # (AUTO) 0.2 x10^3/uL (0.0-0.2); EOSINOPHILS % (AUTO) 3.5 % (0.9-2.9); HEMATOCRIT 37.1 % (36.0-47.0); HEMOGLOBIN 12.7 g/dL (12.0-16.0); LYMPHOCYTES # (AUTO) 0.6 X10^3/uL (1.3-2.9); LYMPHOCYTES % (AUTO) 9.1 % (21.0-51.0); MEAN CORPUSCULAR HGB CONC 34.2 g/dL (33.0-35.0); MEAN CORPUSCULAR VOLUME 87.7 fL (80.0-100.0); MEAN PLATELET VOLUME 8.1 fL (7.4-11.0); MONOCYTES # (AUTO) 0.2 x10^3/uL (0.3-0.8); NEUTROPHILS # (AUTO) 5.5 x10^3/uL (2.2-4.8); NEUTROPHILS % (AUTO) 83.4 % (42.0-75.0); PLATELET COUNT 391 X10^3/uL (150.0-450.0); RED BLOOD COUNT 4.23 X10^6/uL (3.5-5.4); RED CELL DISTRIBUTION WIDTH 15.8 % (11.6-16.5); WHITE BLOOD COUNT 6.5 X10^3/uL (3.6-10.0)
--- NOTE | 2018-03-07 10:12 | DR.EXTPAIN ---
HPI Time seen Time Seen by Provider: 03/07/18 09:27 HPI Comment HPI Comment: DIAGNOSE WITH PNEUMONIA AND GIVEN IMROCEPHIN AND DISCHARGE WITH ZITHROMAX. SHE STATED VOMITING AT HOME AND GETTING WEAKER. NOW NOT HOLDING DOWN FLUID OR MEDS. Complaint/Symptoms Chief Complaint Doctor Comments: FEVER, GENERALIZE WEAKNESS, NAUSEA AND VOMITING. Nurses notes reviewed Nurses Notes Review: Yes Source History Provided: Patient and Family Member Mode of arrival Mode of Arrival: Wheelchair Context History of: Arthritis Associated signs and symptoms Associated Signs and Symptoms: Weakness, Nausea and Shortness of Breath ROS Review of Systems Constitutional: Fever, Weakness and Fatigue Eyes: No Symptoms Reported ENTM: Nose Congestion Respiratoy: Short of Breath Cardiovascular: Chest Pain Gastrointestinal/Abdominal: Nausea Genitourinary: No Symptoms Reported Neurological: Weakness Musculoskeletal: Muscle Pain Integumentary: Dryness Hematologic/Lymphatic: No Symptoms Reported Endocrine: No Symptoms Reported Psychiatric: No Symptoms Reported All Other Systems: Reviewed and Negative PE Vital Signs Vitals: Temperature 99.5 F Pulse Rate 102 Respiratory Rate 20 Blood Pressure 160/68 O2 Sat by Pulse Oximetry 98 General Limitations: No Limitations General Appearance: Alert and In Distress (MILD DISTRESS AT REST.) Head Head Exam: Normal Inspection Eyes Eye exam: Normal Appearance ENT ENT Exam: Normal Oropharynx, Normal External Ear Exam and TM's Normal Bilaterally Neck Neck Exam: Trachea Midline; negative Tenderness, Meningismus and Lymphadenopathy Chest Chest Inspection: Normal Inspection and Symmetric Chest Wall Rise Respiratory Respiratory Exam: Normal Lung Sounds Bilat Respiratory Exam: Bilateral: Rhonchi and Lower: Rhonchi Cardiovascular Cardiovascular Exam: Tachycardia Abdominal Exam Abdominal Exam: Normal Inspection, Normal Bowel Sounds and Soft; negative Tenderness Extremities Extremities Exam: Normal Inspection Back Back Exam: Normal Inspection Neurological Neurological Exam: Alert and Oriented X3; negative Motor Sensory Deficit Psychiatric Psychiatric Exam: Normal Affect and Normal Mood Skin Skin Exam: Dry MDM Differential Diagnosis Differential Diagnosis: Other (PNEUMONIA, SEPSIS, GENERALIZE WEAKNESS, NAUSEA.) COURSE Treatment Treatment: SEE ORDERS. Consultation Consultation Comments: DISCUSS PATIENT WITH DR. YOUNG. HE WILL ADMIT PATIENT. Education/Counseling Education/Counseling: Patient and Family Educated On: Diagnosis ROR Labs Reviewed Laboratory Results Reviewed?: Yes Result Diagrams: 03/07/18 09:54 03/07/18 09:54 Laboratory: WBC 6.5 X10^3/uL (3.6-10.0) 03/07/18 09:54 RBC 4.23 X10^6/uL (3.5-5.4) 03/07/18 09:54 Hgb 12.7 g/dL (12.0-16.0) 03/07/18 09:54 Hct 37.1 % (36.0-47.0) 03/07/18 09:54 MCV 87.7 fL (80.0-100.0) 03/07/18 09:54 MCH 30.0 pg (27.0-34.0) 03/07/18 09:54 MCHC 34.2 g/dL (33.0-35.0) 03/07/18 09:54 RDW 15.8 % (11.6-16.5) 03/07/18 09:54 Plt Count 391 X10^3/uL (150.0-450.0) 03/07/18 09:54 MPV 8.1 fL (7.4-11.0) 03/07/18 09:54 Neut % (Auto) 83.4 % (42.0-75.0) H 03/07/18 09:54 Lymph % (Auto) 9.1 % (21.0-51.0) L 03/07/18 09:54 Rock % (Auto) 3.0 % (0.0-13.0) 03/07/18 09:54 Eos % (Auto) 3.5 % (0.9-2.9) H 03/07/18 09:54 Baso % (Auto) 1.0 % (0.2-1.0) 03/07/18 09:54 Neut # (Auto) 5.5 x10^3/uL (2.2-4.8) H 03/07/18 09:54 Lymph # (Auto) 0.6 X10^3/uL (1.3-2.9) L 03/07/18 09:54 Rock # (Auto) 0.2 x10^3/uL (0.3-0.8) L 03/07/18 09:54 Eos # (Auto) 0.2 x10^3/uL (0.0-0.2) 03/07/18 09:54 Baso # (Auto) 0.1 X10^3/uL (0.0-0.1) 03/07/18 09:54 Absolute Nucleated RBC 0.0 /100WBC 03/07/18 09:54 Sodium 137 mmol/L (136-145) 03/07/18 09:54 Corrected Sodium TNP 03/07/18 09:54 Potassium 3.5 mmol/L (3.5-5.1) 03/07/18 09:54 Chloride 100 mmol/L (98-107) 03/07/18 09:54 Carbon Dioxide 27.6 mmol/L (21-32) 03/07/18 09:54 BUN 11 mg/dL (7-18) 03/07/18 09:54 Creatinine 0.70 mg/dL (0.55-1.02) 03/07/18 09:54 Est GFR (MDRD) Af Amer > 60 (>60) 03/07/18 09:54 Est GFR (MDRD) Non-Af > 60 (>60) 03/07/18 09:54 Glucose 105 mg/dL (65-99) H 03/07/18 09:54 Lactic Acid 1.4 mmol/L (0.4-2.0) 03/07/18 09:54 Calcium 8.8 mg/dL (8.5-10.1) 03/07/18 09:54 Corrected Calcium 10.1 mg/dL (8.5-10.1) 03/07/18 09:54 Total Bilirubin 0.40 mg/dL (0.2-1.0) 03/07/18 09:54 AST 24 Units/L (15-37) 03/07/18 09:54 ALT 44 Units/L (12-78) 03/07/18 09:54 Alkaline Phosphatase 143 Units/L (46-116) H 03/07/18 09:54 Total Protein 6.1 g/dL (6.4-8.2) L 03/07/18 09:54 Albumin 2.4 g/dL (3.4-5.0) L 03/07/18 09:54 Globulin 3.7 g/dL (2.5-4.5) 03/07/18 09:54 Albumin/Globulin Ratio 0.6 Ratio (1.1-2.1) L 03/07/18 09:54 Amylase 30 Units/L (25-115) 03/07/18 09:54 Lipase 60 Units/L (73-393) L 03/07/18 09:54 XRAY XRAY Interpreted by: Radiologist XRAY Findings: REPORT DISCUSS WITH PATIENT AND FAMILY. EKG Rate: 102 [place]: LAD Rhythm: ST ST: Nonsp
--- NOTE | 2018-03-07 10:15 | RAD ---
HISTORY: Weakness, fever Study: Single-view of the chest Comparison: None Findings: The trachea is midline. The cardiac silhouette is at the upper limits of normal. Interstitial changes are seen within both lungs. Increased perihilar markings and bronchial thickening are noted. Patchy upper lobe infiltrate left greater than right cannot be excluded. Recommend clinical correlation and continued follow-up to exclude additional underlying process. Surgical clips project over the epigastric region and right upper quadrant of the abdomen. IMPRESSION: 1. Radiographic findings of bronchitis/viral illness with questionable patchy infiltrate bilaterally as noted above. Correlate clinically. Reported By:
[2018-03-07 10:18] LABS: ALANINE AMINOTRANSFERASE 44 Units/L (12-78); ALBUMIN 2.4 g/dL (3.4-5.0); ALKALINE PHOSPHATASE 143 Units/L (46-116); AMYLASE 30 Units/L (25-115); ASPARTATE AMINO TRANSFERASE 24 Units/L (15-37); BLOOD UREA NITROGEN 11 mg/dL (7-18); CALCIUM 8.8 mg/dL (8.5-10.1); CARBON DIOXIDE 27.6 mmol/L (21-32); CHLORIDE 100 mmol/L (98-107); COR CA(FOR HYPOALB) 10.1 mg/dL (8.5-10.1); LIPASE 60 Units/L (73-393); SODIUM 137 mmol/L (136-145); TOTAL PROTEIN 6.1 g/dL (6.4-8.2); eGFR NON BLACK RACES > 60 (>60)
[2018-03-07 10:26] LABS: LACTIC ACID 1.4 mmol/L (0.4-2.0)
[2018-03-07] MEDS ORDERED: NS 1/2 1000 ML IV 1,000 ML IV ONE ×2 (10:39→10:52)
[2018-03-07] MEDS ORDERED: ROCEPHIN VIAL 1 GRAM IVP ONE (10:39)
[2018-03-07] MEDS ORDERED: FORTAZ or TAZICEF VIAL INJ ONE (10:40)
[2018-03-07] MEDS ORDERED: NS 100 ML IV 100 ML IV ONE (10:41)
[2018-03-07] MEDS ORDERED: SALINE 3% 15 ML NEB TX ONE (10:46)
[2018-03-07 11:08] LABS: CKMB % 5.9 % (<4); CREATINE KINASE 17 Units/L (26-192); CREATINE KINASE MB < 1.0 ng/mL (0-4.0); TROPONIN I < 0.02 ng/mL (0-1.5)
[2018-03-07] MEDS: FORTAZ or TAZICEF VIAL INJ IVP ONE ×2 (11:22→11:30)
[2018-03-07] MEDS ORDERED: ZOFRAN INJ 4 MG VIAL IVP PRN (11:37)
[2018-03-07] MEDS ORDERED: VIBRAMYCIN PO SCH (12:00)
[2018-03-07] MEDS ORDERED: PROTONIX INJ 40 MG VIAL IVP SCH (12:00)
[2018-03-07] MEDS ORDERED: SYNTHROID 50 mcg TAB PO SCH (12:16)
[2018-03-07] MEDS ORDERED: TUSSIONEX PENNKINETIC SUSP PO PRN (12:16)
[2018-03-07] MEDS ORDERED: NS 1/2 1000 ML IV 1,000 ML IV SCH (12:16)
[2018-03-07] MEDS: DUONEB 0.5 MG/3 MG NEB SCH ×3 (12:32→20:43)
[2018-03-07] MEDS ORDERED: DUONEB 0.5 MG/3 MG NEB SCH ×2 (13:00)
[2018-03-07] MEDS ORDERED: ULTRAM ONE (13:50)
[2018-03-07 13:51] LABS: BILIRUBIN,URINE NEGATIVE (NEGATIVE); BLOOD/HEMOGLOBIN,URINE NEGATIVE (NEGATIVE); GLUCOSE, URINE NEGATIVE (NEGATIVE); KETONES,URINE 1+ (NEGATIVE); LEUKOCYTE ESTERASE ,URINE 1+ (NEGATIVE); NITRITES,URINE NEGATIVE (NEGATIVE); PROTEIN,URINE 1+ (NEGATIVE); UROBILINOGEN,URINE NORMAL (NORMAL)
[2018-03-07 14:03] LABS: APPEARANCE,URINE SLIGHTLY HAZY (CLEAR); BACTERIA,URINE TRACE /HPF (NEGATIVE); COLOR,URINE YELLOW (YELLOW); MUCUS,URINE FEW /HPF (NEGATIVE); SQUAMOUS EPITHELIAL CELL,UR MODERATE /HPF (NEGATIVE)
[2018-03-07] MEDS: ROBITUSSIN DM PO SCH ×3 (14:10→20:58)
[2018-03-07] MEDS: ULTRAM PO PRN ×2 (14:11→21:05)
[2018-03-07] MEDS ORDERED: NS 1000 ML IV SCH (15:00)
[2018-03-07] MEDS: NS 1000 ML 1,000 ML IV SCH (15:16)
[2018-03-07] MEDS: ELAVIL PO SCH (16:13)
[2018-03-07] MEDS: LEVSIN/MAALOX/LIDOC VISC PO SCH ×2 (19:16→21:34)
[2018-03-07] MEDS: LEVAQUIN PREMIX IV 750 MG 750 MG/150 ML BAG IV SCH (19:16)
[2018-03-07] MEDS: PROTONIX INJ 40 MG VIAL IVP SCH (21:01)
[2018-03-07] MEDS: FORTAZ or TAZICEF VIAL INJ IVP SCH (21:02)
[2018-03-07] MEDS: KLONOPIN TAB 1 MG PO SCH (21:05)
[2018-03-08] MEDS: ULTRAM PO PRN (04:19)
[2018-03-08] MEDS: SYNTHROID 50 mcg TAB PO SCH (04:19)
[2018-03-08 05:20] LABS: BASOPHILS % (AUTO) 0.4 % (0.2-1.0); EOSINOPHILS # (AUTO) 0.1 x10^3/uL (0.0-0.2); EOSINOPHILS % (AUTO) 0.8 % (0.9-2.9); HEMATOCRIT 32.1 % (36.0-47.0); HEMOGLOBIN 10.8 g/dL (12.0-16.0); LYMPHOCYTES # (AUTO) 0.5 X10^3/uL (1.3-2.9); LYMPHOCYTES % (AUTO) 7.5 % (21.0-51.0); MEAN CORPUSCULAR HGB CONC 33.6 g/dL (33.0-35.0); MEAN CORPUSCULAR VOLUME 89.3 fL (80.0-100.0); MONOCYTES # (AUTO) 0.2 x10^3/uL (0.3-0.8); MONOCYTES % (AUTO) 3.7 % (0.0-13.0); NEUTROPHILS # (AUTO) 5.4 x10^3/uL (2.2-4.8); NEUTROPHILS % (AUTO) 87.6 % (42.0-75.0); PLATELET COUNT 361 X10^3/uL (150.0-450.0); RED CELL DISTRIBUTION WIDTH 15.6 % (11.6-16.5); WHITE BLOOD COUNT 6.1 X10^3/uL (3.6-10.0)
[2018-03-08 05:31] LABS: ALANINE AMINOTRANSFERASE 29 Units/L (12-78); ALBUMIN 1.7 g/dL (3.4-5.0); ALKALINE PHOSPHATASE 112 Units/L (46-116); ASPARTATE AMINO TRANSFERASE 22 Units/L (15-37); BLOOD UREA NITROGEN 9 mg/dL (7-18); CALCIUM 7.9 mg/dL (8.5-10.1); CARBON DIOXIDE 24.6 mmol/L (21-32); CHLORIDE 97 mmol/L (98-107); COR CA(FOR HYPOALB) 9.7 mg/dL (8.5-10.1); COR NA(FOR HYPERGLY) 130 mmol/L (136-145); CREATININE 0.79 mg/dL (0.55-1.02); SODIUM 129 mmol/L (136-145); TOTAL PROTEIN 4.8 g/dL (6.4-8.2); eGFR NON BLACK RACES > 60 (>60)
[2018-03-08] MEDS: NS 1000 ML 1,000 ML IV SCH ×2 (05:41→19:32)
--- NOTE | 2018-03-08 06:13 | RAD ---
Chest, one view Indication: Dyspnea Comparison: 05/06/2011 Findings: The heart is normal in size. There is bilateral perihilar and upper lobe airspace disease, greater on the left. No significant pleural effusion or pneumothorax is identified. There is no acute osseous abnormality. Impression: Left greater than right airspace disease as above, most compatible with multilobar pneumonia. Clinical correlation and continued radiographic follow-up to complete resolution recommended. Reported By:
[2018-03-08] MEDS: DUONEB 0.5 MG/3 MG NEB SCH ×4 (08:02→20:35)
[2018-03-08] MEDS: TYLENOL 325 MG TAB PO PRN (08:05)
[2018-03-08] MEDS ORDERED: NORVASC TAB 2.5 MG ONE (08:29)
[2018-03-08] MEDS: FORTAZ or TAZICEF VIAL INJ IVP SCH ×2 (08:34→21:22)
[2018-03-08] MEDS: LEVSIN/MAALOX/LIDOC VISC PO SCH ×4 (08:35→21:22)
[2018-03-08] MEDS: LEVAQUIN PREMIX IV 750 MG 750 MG/150 ML BAG IV SCH (08:35)
[2018-03-08] MEDS: PROTONIX INJ 40 MG VIAL IVP SCH ×2 (08:35→21:23)
[2018-03-08] MEDS ORDERED: NORVASC TAB 2.5 MG PO SCH (09:00)
[2018-03-08] MEDS ORDERED: PANTOPRAZOLE 20 MG PO SCH (09:00)
[2018-03-08] MEDS: KLONOPIN TAB 1 MG PO SCH ×2 (10:45→21:21)
[2018-03-08] MEDS: ROBITUSSIN DM PO SCH ×4 (10:46→21:28)
[2018-03-08] MEDS ORDERED: PROCALAMINE 3 % 1,000 ML IV SCH (11:00)
[2018-03-08] MEDS: ZOFRAN INJ 4 MG VIAL IVP PRN (15:08)
[2018-03-08] MEDS: ELAVIL PO SCH (15:08)
[2018-03-08 15:13] LABS: ABG BASE EXCESS -5.1 mmol/L (-2.0-2.0); ABG HCO3 19.9 mmol/L (22-26)
[2018-03-08 15:14] LABS: ABG ALLEN TEST P
--- NOTE | 2018-03-08 16:05 | RAD ---
History: Shortness of breath Study: Portable AP chest Comparison: Today at 5:00 a.m. Findings: There is persistent perihilar upper lobe airspace disease, left more than right and increased or new airspace disease extending into the left lower lobe. There is no obvious pleural effusion. The heart size is normal. Impression: Probable multilobular pneumonia with progression into the left lower lobe since earlier examination Reported By:
[2018-03-08 16:46] LABS: BILIRUBIN,URINE NEGATIVE (NEGATIVE); BLOOD/HEMOGLOBIN,URINE NEGATIVE (NEGATIVE); GLUCOSE, URINE NEGATIVE (NEGATIVE); KETONES,URINE 1+ (NEGATIVE); LEUKOCYTE ESTERASE ,URINE 1+ (NEGATIVE); NITRITES,URINE NEGATIVE (NEGATIVE); PROTEIN,URINE 1+ (NEGATIVE); UROBILINOGEN,URINE NORMAL (NORMAL)
[2018-03-08 16:56] LABS: APPEARANCE,URINE SLIGHTLY HAZY (CLEAR); BACTERIA,URINE TRACE /HPF (NEGATIVE); COLOR,URINE YELLOW (YELLOW); RBC,URINE 0-2 /HPF (NONE SEEN); SQUAMOUS EPITHELIAL CELL,UR RARE /HPF (NEGATIVE)
[2018-03-08] MEDS ORDERED: SOLU-Medrol 125 MG VIAL IVP ONE (17:53)
[2018-03-08] MEDS: COLACE CAP 100 MG PO SCH ×2 (18:13→21:21)
[2018-03-08 18:56] LABS: ABG HCO3 24.8 mmol/L (22-26)
[2018-03-08] MEDS: LOVENOX INJ 40 MG SYR SC SCH (21:30)
[2018-03-08] MEDS: SOLU-Medrol 40 MG VIAL IVP SCH (23:42)
[2018-03-09 05:01] VITALS: BMI 28.6
[2018-03-09] MEDS: SOLU-Medrol 40 MG VIAL IVP SCH ×3 (05:32→21:20)
[2018-03-09] MEDS: SYNTHROID 50 mcg TAB PO SCH (05:32)
[2018-03-09 06:19] LABS: BASOPHILS % (AUTO) 0.2 % (0.2-1.0); HEMOGLOBIN 12.7 g/dL (12.0-16.0); LYMPHOCYTES # (AUTO) 0.4 X10^3/uL (1.3-2.9); LYMPHOCYTES % (AUTO) 4.5 % (21.0-51.0); MEAN CORPUSCULAR HEMOGLOBIN 30.2 pg (27.0-34.0); MEAN CORPUSCULAR HGB CONC 34.4 g/dL (33.0-35.0); MEAN CORPUSCULAR VOLUME 87.9 fL (80.0-100.0); MEAN PLATELET VOLUME 8.2 fL (7.4-11.0); MONOCYTES # (AUTO) 0.1 x10^3/uL (0.3-0.8); MONOCYTES % (AUTO) 1.7 % (0.0-13.0); NEUTROPHILS # (AUTO) 7.7 x10^3/uL (2.2-4.8); NEUTROPHILS % (AUTO) 93.6 % (42.0-75.0); PLATELET COUNT 421 X10^3/uL (150.0-450.0); RED BLOOD COUNT 4.21 X10^6/uL (3.5-5.4); RED CELL DISTRIBUTION WIDTH 15.6 % (11.6-16.5); WHITE BLOOD COUNT 8.3 X10^3/uL (3.6-10.0)
[2018-03-09 06:22] LABS: ALANINE AMINOTRANSFERASE 38 Units/L (12-78); ALBUMIN 1.9 g/dL (3.4-5.0); ALKALINE PHOSPHATASE 146 Units/L (46-116); ASPARTATE AMINO TRANSFERASE 34 Units/L (15-37); BLOOD UREA NITROGEN 10 mg/dL (7-18); CARBON DIOXIDE 25.5 mmol/L (21-32); CHLORIDE 97 mmol/L (98-107); COR CA(FOR HYPOALB) 10.7 mg/dL (8.5-10.1); COR NA(FOR HYPERGLY) 133 mmol/L (136-145); SODIUM 131 mmol/L (136-145); TOTAL PROTEIN 5.7 g/dL (6.4-8.2); eGFR NON BLACK RACES > 60 (>60)
[2018-03-09 06:28] LABS: LACTIC ACID 2.6 mmol/L (0.4-2.0)
[2018-03-09] MEDS ORDERED: K-DUR TAB 20 MEQ PO PRN (06:48)
[2018-03-09] MEDS ORDERED: POTASSIUM CHL 40 MEQ/NS 0.45% 500 ML IV PRN (06:48)
[2018-03-09] MEDS ORDERED: MICRO K EXTEN CAP 10 MEQ PO PRN (06:48)
[2018-03-09] MEDS ORDERED: K-RIDER 10 MEQ/NS 100 ML 10 MEQ/100 ML BAG IV PRN (06:48)
[2018-03-09] MEDS ORDERED: KLOR-CON PO PRN (06:48)
[2018-03-09] MEDS ORDERED: POTASSIUM CHL 60 MEQ/NS 0.45% 500 ML IV PRN (06:48)
[2018-03-09] MEDS ORDERED: POTASSIUM CHLORIDE LIQ 20 MEQ UDC PO PRN (06:48)
[2018-03-09] MEDS ORDERED: MAGNESIUM SULFATE 1 GRAM/100 mL PREMIX 1 GM/100 ML BAG IV PRN (06:49)
[2018-03-09 06:59] LABS: BAND NEUTROPHILS % 1 % (0-10); PLATELET MORPHOLOGY COMMENT NORMAL (NORMAL)
[2018-03-09] MEDS ORDERED: NORVASC TAB 2.5 MG ONE (08:33)
[2018-03-09] MEDS: FORTAZ or TAZICEF VIAL INJ IVP SCH ×2 (08:51→21:22)
[2018-03-09] MEDS: LEVAQUIN PREMIX IV 750 MG 750 MG/150 ML BAG IV SCH (08:51)
[2018-03-09] MEDS: PROTONIX INJ 40 MG VIAL IVP SCH ×2 (08:52→21:15)
[2018-03-09] MEDS: LEVSIN/MAALOX/LIDOC VISC PO SCH ×4 (08:53→21:21)
[2018-03-09] MEDS: ROBITUSSIN DM PO SCH ×4 (08:53→21:15)
[2018-03-09] MEDS: KLONOPIN TAB 1 MG PO SCH ×2 (09:04→21:22)
[2018-03-09] MEDS: NORVASC TAB 2.5 MG PO SCH (09:04)
[2018-03-09] MEDS: COLACE CAP 100 MG PO SCH ×2 (09:04→21:22)
--- NOTE | 2018-03-09 09:16 | RAD ---
History: Shortness of breath Study: AP chest Comparison: Yesterday Findings: There is no significant change showing airspace disease extensively in the left lung and on the right primarily in the upper lobe. The heart size is normal. There is no obvious pleural effusion. There are surgical clips at the gastroesophageal junction as well as cholecystectomy clips. Impression: No significant change extensive bilateral broncho pneumonia Reported By:
[2018-03-09] MEDS: DUONEB 0.5 MG/3 MG NEB SCH ×4 (09:41→20:43)
[2018-03-09] MEDS: LOVENOX INJ 40 MG SYR SC SCH ×2 (09:41→21:23)
[2018-03-09] MEDS: ZOFRAN INJ 4 MG VIAL IVP PRN (15:29)
[2018-03-09] MEDS: NS 1000 ML 1,000 ML IV SCH (16:58)
[2018-03-09] MEDS: ELAVIL PO SCH (16:58)
--- NOTE | 2018-03-09 18:51 | DR.H&P ---
H&P - History & Physical for Day of: H&P Date: 03/07/18 - Chief Complaint Chief Complaint: COUGH, FEVER, WEAKNESS, NAUSEA, VOMITING - History of Present Illness History of Present Illness: IS A 82 YEAR OLD PATIENT OF OURS WHO PRESENTED TO THE EMERGENCY ROOM WITH COMPLAINTS OF COUGH, FEVER, GENERALIZED WEAKNESS, NAUSEA, AND VOMITING. SYMPTOMS REPORTEDLY STARTED 2-3 DAYS PRIOR. SHE REPORTS BEING SEEN IN THE URGENT CARE CLINIC AND BEING DIAGNOSED WITH PNEUMONIA. SHE WAS GIVEN A ROCEPHIN INJECTION AND PRESCRIPTION FOR ZITHROMAX. SHE DENIES IMPROVEMENT AND NOW STATES THAT SHE IS UNABLE TO HOLD ANYTHING DOWN. ON ARRIVAL, VITALS WERE 99.5-102-20-98%-160/68. LABS WERE OBTAINED. ABNORMAL LAB VALUES INCLUDE THE FOLLOWING: GLUCOSE 105, ALK PHOS 143, CREATINE KINASE 17, TOTAL PROTEIN 6.1, ALBUMIN 2.4, LIPASE 60. URINALYSIS REVEALED: WBC 3-5, RBC 3-5, BACTERIA TRACE, LEUKOCYTES 1+. INFLUENZA NEGATIVE. BLOOD AND SPUTUM CULTURES OBTAINED. CHEST XRAY OBTAINED AND REVEALED: Radiographic findings of bronchitis/viral illness with questionable patchy infiltrate bilaterally Correlate clinically. EKG REVEALED: SINUS TACHYCARDIA WITH HR 102. SHE WAS GIVEN VIBRAMYCIN 100MG PO X 1 AND FORTAZ 1GM IV X 1 DOSE IN THE ER. SHE WAS ADMITTED TO THE HOSPITAL FOR FURTHER EVALUATION AND TREATMENT OF PNEUMONIA, GENERALIZED WEAKNESS, AND NAUSEA AND VOMITING. SHE WAS STARTED ON FORTAZ 1GM IV Q12H, LEVAQUIN 750MG IV DAILY, RESPIRATORY TREATMENTS, AND SUPPLEMENTAL OXYGEN. WE PLAN TO FOLLOW UP WITH AM LABS AND CHEST XRAY AND CONTINUE TO MONITOR. - Past Medical History Past Medical History: Arthritis, GERD, Hypertension Additional Medical History: DIVERTICULOSIS, CONSTIPATION, UTIs, RHEUMATOID ARTHRITIS, OSTEOPOROSIS - Past Surgical History Surgical History: Abdominal Surgery, Appendectomy, Hysterectomy, Ortho Surgery Additional Surgical History: Rt rib resection. Ajit. Ortiz 2 with gastrojejunostomy and jejunostomy. Rt. foot bunionectomy. Bilateral Cataracts. Evacuate Left subdural hematoma. Kyphoplasty - Family History Family Medical History: Coronary Artery Disease, Hypertension - Social History Does patient currently use any type of tobacco product: No Have you used tobacco products in the last 12 months: No Type of Tobacco Use: None Does any household member use tobacco: No Alcohol Use: None Drug Use: None - Medications Home Medications: codeine Allergy (Verified 03/07/18 13:49) hydromorphone [From Dilaudid] Allergy (Verified 03/07/18 13:49) metoclopramide [From Reglan] Allergy (Verified 03/07/18 13:49) CONTINUE taking the following medications amitriptyline 25 - 50 mg PO DAILY 03/07/18 [History] amlodipine 2.5 mg PO DAILY 03/07/18 [History] clonazepam 2 mg PO HS 03/07/18 [History] diclofenac sodium 50 mg PO BID 03/07/18 [History] docusate sodium 50 mg PO BID PRN 03/07/18 [History] folic acid 400 mcg PO BID 03/07/18 [History] levothyroxine 50 mcg PO DAILY 03/07/18 [History] methotrexate sodium See Rx Instructions .ROUTE .COMPLEX 03/07/18 [History] pantoprazole 20 mg PO DAILY 03/07/18 [History] polyethylene glycol 3350 [Miralax] 17 g PO DAILY PRN 03/07/18 [History] tramadol 50 mg PO PRN PRN 03/07/18 [History] - Review of Systems Constitutional: Fever, Chills, Weakness Eyes: No Symptoms Reported ENT: No Symptoms Reported Respiratory: See HPI, Cough, Shortness of Breath Cardiovascular: No Symptoms Reported Gastrointestinal: Nausea, Vomiting Genitourinary: No Symptoms Reported Musculoskeletal: No Symptoms Reported Skin: No Symptoms Reported Neurological: Weakness - Physical Exam Vital Signs: Temperature 98.1 F Pulse Rate [Left Brachial] 98 Pulse Rate 84 Respiratory Rate 18 Blood Pressure [Left Arm] 117/63 Blood Pressure [Right Arm] 101/57 Blood Pressure [Left Arm] 101/58 Blood Pressure 160/68 O2 Sat by Pulse Oximetry 97 Oriented: Normal Eyes: Normal Ear: Normal Nose: Normal Throat: Normal Respiratory: Diminished Throughout, Wheezes Throughout Cardiovascular: Tachycardia. negative: S3, S4, Murmur : Normal Auscultation: Bowel Sounds: Normal Palpation: Normal Tenderness: Normal Skin: Normal Musculoskeletal: Normal Psychiatric: Normal Mood Description: Calm Affect: Normal Speech Pattern: Clear - Assessment/Plan (1) Pneumonia Qualifiers: Pneumonia type: due to unspecified organism Laterality: bilateral Lung location: unspecified part of lung Qualified Code(s): J18.9 - Pneumonia, unspecified organism Status: Acute Plan: PNEUMONIA PATHWAY WITH IV FORTAZ, IV LEVAQUIN, RESPIRATORY TX, SUPPLEMENTAL OXYGEN (2) Generalized weakness Status: Acute (3) Intractable nausea and vomiting Qualifiers: Vomiting type: unspecified Qualified Code(s): R11.2 - Nausea with vomiting, unspecified Status: Acute - Allergies Allergies/Adverse Reactions: Allergies Allergy/AdvReac Type Severity Reaction Status Date / Time codeine Allergy Verified 03/07/18 13:49 hydromorphone [From Dilaudid] Allergy Verified 03/07/18 13:49 metoclopramide [From Reglan] Allergy Verified 03/07/18 13:49
[2018-03-10] MEDS: NS 1000 ML 1,000 ML IV SCH ×2 (04:26→16:58)
[2018-03-10] MEDS: SYNTHROID 50 mcg TAB PO SCH (04:29)
[2018-03-10] MEDS: SOLU-Medrol 40 MG VIAL IVP SCH ×3 (05:33→23:40)
--- NOTE | 2018-03-10 05:52 | RAD ---
Examination: AP chest History: SOB Comparison 03/09/2018 Findings: Continued normal heart size. There is interval improvement in the infiltrate in the left lung with slight progression in the right upper lobe. There is no evidence for complicating pneumothorax or large pleural effusion. Impression: Shifting pattern of bilateral airspace disease consistent with pneumonia and/or pulmonary edema. Reported By:
[2018-03-10 06:19] LABS: BASOPHILS % (AUTO) 0 % (0.2-1.0); HEMATOCRIT 32.8 % (36.0-47.0); HEMOGLOBIN 11.4 g/dL (12.0-16.0); LYMPHOCYTES # (AUTO) 0.5 X10^3/uL (1.3-2.9); LYMPHOCYTES % (AUTO) 3.8 % (21.0-51.0); MEAN CORPUSCULAR HEMOGLOBIN 30.2 pg (27.0-34.0); MEAN CORPUSCULAR HGB CONC 34.7 g/dL (33.0-35.0); MEAN CORPUSCULAR VOLUME 87.1 fL (80.0-100.0); MEAN PLATELET VOLUME 8.2 fL (7.4-11.0); MONOCYTES # (AUTO) 0.4 x10^3/uL (0.3-0.8); MONOCYTES % (AUTO) 2.6 % (0.0-13.0); NEUTROPHILS # (AUTO) 12.9 x10^3/uL (2.2-4.8); NEUTROPHILS % (AUTO) 93.6 % (42.0-75.0); PLATELET COUNT 474 X10^3/uL (150.0-450.0); RED BLOOD COUNT 3.76 X10^6/uL (3.5-5.4); RED CELL DISTRIBUTION WIDTH 15.7 % (11.6-16.5); WHITE BLOOD COUNT 13.7 X10^3/uL (3.6-10.0)
[2018-03-10 06:27] LABS: ALANINE AMINOTRANSFERASE 43 Units/L (12-78); ALBUMIN 1.7 g/dL (3.4-5.0); ALKALINE PHOSPHATASE 134 Units/L (46-116); ASPARTATE AMINO TRANSFERASE 44 Units/L (15-37); BLOOD UREA NITROGEN 12 mg/dL (7-18); CARBON DIOXIDE 24.7 mmol/L (21-32); CHLORIDE 92 mmol/L (98-107); COR CA(FOR HYPOALB) 10.8 mg/dL (8.5-10.1); COR NA(FOR HYPERGLY) 128 mmol/L (136-145); CREATININE 0.75 mg/dL (0.55-1.02); SODIUM 127 mmol/L (136-145); TOTAL PROTEIN 5.3 g/dL (6.4-8.2); eGFR NON BLACK RACES > 60 (>60)
[2018-03-10 07:18] LABS: BAND NEUTROPHILS % 9 % (0-10); METAMYELOCYTES % 1
[2018-03-10 07:19] LABS: PLATELET MORPHOLOGY COMMENT NORMAL (NORMAL)
[2018-03-10] MEDS ORDERED: NORVASC TAB 2.5 MG ONE (09:22)
[2018-03-10] MEDS: DUONEB 0.5 MG/3 MG NEB SCH ×4 (09:25→20:26)
[2018-03-10] MEDS: LEVSIN/MAALOX/LIDOC VISC PO SCH ×4 (09:30→23:36)
[2018-03-10] MEDS: FORTAZ or TAZICEF VIAL INJ IVP SCH ×2 (09:31→23:38)
[2018-03-10] MEDS: KLONOPIN TAB 1 MG PO SCH ×3 (09:31→23:38)
[2018-03-10] MEDS: NORVASC TAB 2.5 MG PO SCH (09:31)
[2018-03-10] MEDS: PROTONIX INJ 40 MG VIAL IVP SCH ×2 (09:31→23:39)
[2018-03-10] MEDS: COLACE CAP 100 MG PO SCH ×2 (09:31→23:37)
[2018-03-10] MEDS: LOVENOX INJ 40 MG SYR SC SCH ×2 (09:32→21:57)
[2018-03-10] MEDS: LEVAQUIN PREMIX IV 750 MG 750 MG/150 ML BAG IV SCH (09:32)
[2018-03-10] MEDS: ROBITUSSIN DM PO SCH ×4 (09:32→23:37)
[2018-03-10] MEDS: ELAVIL PO SCH (16:57)
[2018-03-10] MEDS: ULTRAM PO PRN (18:16)
[2018-03-11] MEDS: ULTRAM PO PRN (00:20)
[2018-03-11] MEDS: SYNTHROID 50 mcg TAB PO SCH (04:54)
[2018-03-11] MEDS: DUONEB 0.5 MG/3 MG NEB SCH ×4 (08:53→21:10)
[2018-03-11] MEDS: NORVASC TAB 2.5 MG PO SCH (10:00)
[2018-03-11] MEDS ORDERED: NORVASC TAB 2.5 MG ONE ×2 (10:04→10:27)
[2018-03-11] MEDS: LEVSIN/MAALOX/LIDOC VISC PO SCH ×4 (10:17→20:18)
[2018-03-11] MEDS: ROBITUSSIN DM PO SCH ×3 (10:18→18:30)
[2018-03-11] MEDS: PROTONIX INJ 40 MG VIAL IVP SCH ×3 (10:19→20:15)
[2018-03-11] MEDS ORDERED: DEMEROL INJ ONE (10:22)
[2018-03-11] MEDS ORDERED: DEMEROL INJ IM ONE (10:22)
[2018-03-11] MEDS: KLONOPIN TAB 1 MG PO SCH ×2 (10:29→18:44)
[2018-03-11] MEDS: LOVENOX INJ 40 MG SYR SC SCH ×2 (10:30→20:15)
[2018-03-11] MEDS ORDERED: NS 100 ML IV 100 ML IV ONE (10:56)
[2018-03-11] MEDS: NS 1000 ML 1,000 ML IV SCH ×2 (11:01→18:28)
[2018-03-11] MEDS: LEVAQUIN PREMIX IV 750 MG 750 MG/150 ML BAG IV SCH (11:03)
[2018-03-11] MEDS: SOLU-Medrol 40 MG VIAL IVP SCH ×3 (11:31→22:10)
[2018-03-11] MEDS: COLACE CAP 100 MG PO SCH ×3 (11:45→20:23)
[2018-03-11 11:52] LABS: BASOPHILS % (AUTO) 0.2 % (0.2-1.0); EOSINOPHILS % (AUTO) 0.2 % (0.9-2.9); HEMOGLOBIN 11.1 g/dL (12.0-16.0); LYMPHOCYTES # (AUTO) 0.4 X10^3/uL (1.3-2.9); LYMPHOCYTES % (AUTO) 3.7 % (21.0-51.0); MEAN CORPUSCULAR HEMOGLOBIN 29.8 pg (27.0-34.0); MEAN CORPUSCULAR HGB CONC 33.7 g/dL (33.0-35.0); MEAN CORPUSCULAR VOLUME 88.5 fL (80.0-100.0); MEAN PLATELET VOLUME 8.1 fL (7.4-11.0); MONOCYTES # (AUTO) 0.2 x10^3/uL (0.3-0.8); MONOCYTES % (AUTO) 1.8 % (0.0-13.0); NEUTROPHILS # (AUTO) 10.7 x10^3/uL (2.2-4.8); NEUTROPHILS % (AUTO) 94.1 % (42.0-75.0); PLATELET COUNT 372 X10^3/uL (150.0-450.0); RED BLOOD COUNT 3.73 X10^6/uL (3.5-5.4); RED CELL DISTRIBUTION WIDTH 15.7 % (11.6-16.5); WHITE BLOOD COUNT 11.3 X10^3/uL (3.6-10.0)
[2018-03-11 11:58] LABS: ALANINE AMINOTRANSFERASE 43 Units/L (12-78); ALBUMIN 1.7 g/dL (3.4-5.0); ALKALINE PHOSPHATASE 149 Units/L (46-116); ASPARTATE AMINO TRANSFERASE 31 Units/L (15-37); BLOOD UREA NITROGEN 13 mg/dL (7-18); CARBON DIOXIDE 28.4 mmol/L (21-32); CHLORIDE 95 mmol/L (98-107); COR CA(FOR HYPOALB) 10.8 mg/dL (8.5-10.1); SODIUM 129 mmol/L (136-145); TOTAL PROTEIN 5.2 g/dL (6.4-8.2); eGFR NON BLACK RACES > 60 (>60)
[2018-03-11] MEDS: FORTAZ or TAZICEF VIAL INJ IVP SCH ×2 (12:01→20:16)
--- NOTE | 2018-03-11 12:05 | RAD ---
HISTORY: Central line placement Study: Single view chest Comparison: 03/10/2018 Findings: Left subclavian CVL terminates in the region of cavoatrial junction. Diffuse alveolar and interstitial opacities are seen throughout the lungs. There is stable rightward deviation tortuosity of trachea. No pneumothorax is identified. There are degenerative changes bony thorax with diffuse osteopenia. IMPRESSION: 1. Left subclavian CVL terminates in the region of the cavoatrial junction. 2. Diffuse alveolar and interstitial opacities throughout the lungs. 3. No pneumothorax identified. Reported By:
[2018-03-11 12:40] LABS: BAND NEUTROPHILS % 4 % (0-10); PLATELET MORPHOLOGY COMMENT NORMAL (NORMAL)
[2018-03-11] MEDS: ELAVIL PO SCH ×2 (14:43→17:04)
[2018-03-11] MEDS: TYLENOL 325 MG TAB PO PRN (14:46)
[2018-03-12] MEDS: ROBITUSSIN DM PO SCH ×5 (05:21→20:47)
[2018-03-12] MEDS: KLONOPIN TAB 1 MG PO SCH ×2 (05:21→08:21)
[2018-03-12] MEDS: SYNTHROID 50 mcg TAB PO SCH (05:21)
--- NOTE | 2018-03-12 06:08 | RAD ---
HISTORY: Shortness of breath Study: Chest AP portable Comparison: 03/11/2018 Findings: There is a left-sided central line with its tip likely in the right atrium. The heart is within normal limits in size. Diffuse severe interstitial lung changes are present not significantly different from the prior examination. No pleural effusions are identified. The bony thorax is unremarkable. IMPRESSION: Diffuse severe interstitial lung disease unchanged from the prior examination Reported By:
[2018-03-12 06:53] LABS: BASOPHILS % (AUTO) 0.1 % (0.2-1.0); HEMOGLOBIN 10.3 g/dL (12.0-16.0); LYMPHOCYTES # (AUTO) 0.4 X10^3/uL (1.3-2.9); LYMPHOCYTES % (AUTO) 3.2 % (21.0-51.0); MEAN CORPUSCULAR HEMOGLOBIN 30.4 pg (27.0-34.0); MEAN CORPUSCULAR HGB CONC 34.5 g/dL (33.0-35.0); MEAN CORPUSCULAR VOLUME 88.2 fL (80.0-100.0); MEAN PLATELET VOLUME 8.3 fL (7.4-11.0); MONOCYTES # (AUTO) 0.5 x10^3/uL (0.3-0.8); MONOCYTES % (AUTO) 3.9 % (0.0-13.0); NEUTROPHILS # (AUTO) 11.2 x10^3/uL (2.2-4.8); NEUTROPHILS % (AUTO) 92.8 % (42.0-75.0); PLATELET COUNT 295 X10^3/uL (150.0-450.0); RED CELL DISTRIBUTION WIDTH 15.9 % (11.6-16.5)
[2018-03-12 06:57] LABS: ALANINE AMINOTRANSFERASE 37 Units/L (12-78); ALBUMIN 1.5 g/dL (3.4-5.0); ALKALINE PHOSPHATASE 161 Units/L (46-116); ASPARTATE AMINO TRANSFERASE 24 Units/L (15-37); BLOOD UREA NITROGEN 14 mg/dL (7-18); CALCIUM 8.8 mg/dL (8.5-10.1); CARBON DIOXIDE 30.2 mmol/L (21-32); CHLORIDE 97 mmol/L (98-107); COR CA(FOR HYPOALB) 10.8 mg/dL (8.5-10.1); COR NA(FOR HYPERGLY) 130 mmol/L (136-145); CREATININE 0.57 mg/dL (0.55-1.02); SODIUM 130 mmol/L (136-145); TOTAL PROTEIN 4.8 g/dL (6.4-8.2); eGFR NON BLACK RACES > 60 (>60)
[2018-03-12 07:37] LABS: PLATELET MORPHOLOGY COMMENT NORMAL (NORMAL)
[2018-03-12] MEDS ORDERED: NORVASC TAB 2.5 MG ONE (08:06)
[2018-03-12] MEDS: LEVAQUIN PREMIX IV 750 MG 750 MG/150 ML BAG IV SCH (08:15)
[2018-03-12] MEDS: PROTONIX INJ 40 MG VIAL IVP SCH ×2 (08:16→20:47)
[2018-03-12] MEDS: LOVENOX INJ 40 MG SYR SC SCH ×2 (08:16→20:47)
[2018-03-12] MEDS: FORTAZ or TAZICEF VIAL INJ IVP SCH ×2 (08:16→20:46)
[2018-03-12] MEDS: LEVSIN/MAALOX/LIDOC VISC PO SCH ×4 (08:18→20:47)
[2018-03-12] MEDS: NORVASC TAB 2.5 MG PO SCH (08:20)
[2018-03-12] MEDS: COLACE CAP 100 MG PO SCH ×2 (08:20→20:47)
[2018-03-12] MEDS: TYLENOL 325 MG TAB PO PRN ×2 (08:45→18:18)
[2018-03-12] MEDS: DUONEB 0.5 MG/3 MG NEB SCH ×4 (09:01→20:40)
[2018-03-12] MEDS ORDERED: KLONOPIN TAB 1 MG PO PRN ×2 (11:25→11:32)
[2018-03-12 11:53] LABS: ABG ALLEN TEST POS; ABG HCO3 30.2 mmol/L (22-26)
[2018-03-12] MEDS ORDERED: LASIX IVP ONE (12:00)
--- NOTE | 2018-03-12 13:24 | PCM.PROG ---
Progress Note - Progress Note for Day of Date of Exam: 03/11/18 - Subjective Subjective: The patient is an 82-year-old white female who is a patient of Dr. Murphy private practice who was admitted on March 07, 2018 with pneumonia. The patient has been on respiratory therapy and supplemental oxygen along with IV antibiotics. The patients repeat chest x-ray with bilateral air space disease which is consistent with pneumonia. There is interval improvement in the infiltrate in the left lung and slight progression in the right lung. T She is currently on IV Fortaz as well as Levaquin and she has been on IV steroids as well. The patients daughter is at her bedside and stated that she rested well during the night,and she continues with some mildly productive cough. More SOB at rest today, increased resp rate. - Past Medical Family Social History Past Med/Fam/Surg Hx: No changes since H&P Allergies: Allergies codeine Allergy (Verified 03/07/18 13:49) hydromorphone [From Dilaudid] Allergy (Verified 03/07/18 13:49) metoclopramide [From Reglan] Allergy (Verified 03/07/18 13:49) - Review of Systems ROS: No change since H&P - Vital Signs and I&O's Vital Signs: Temperature 97.4 F Pulse Rate [Left Brachial] 105 Pulse Rate 95 Respiratory Rate 25 Blood Pressure [Left Arm] 154/73 Blood Pressure [Right Arm] 101/57 Blood Pressure [Left Arm] 101/58 Blood Pressure 114/63 O2 Sat by Pulse Oximetry 95 Intake and Output: Intake & Output 03/10/18 03/11/18 03/12/18 03/13/18 11:59 11:59 11:59 11:59 Intake Total 1664 / 1664 565 / 565 1369 / 1369 Output Total 1950 / 1950 1550 / 1550 1130 / 1130 Balance -286 / -286 -985 / -985 239 / 239 - Physical Exam Oriented: Normal Eyes: Normal Ear: Normal Nose: Normal Throat: Normal Respiratory: Diminished, Wheezes, Rhonchi Cardiovascular: Tachycardia : Normal Auscultation: Bowel Sounds: Normal Tenderness: Normal Skin: Normal Musculoskeletal: Shoulder, Knee, Back:Thoracic, Back:Lumbar, Tender Psychiatric: Normal Mood Description: Calm Affect: Normal Speech Pattern: Appropriate - Laboratory and Diagnostics Result Diagrams: 03/12/18 06:05 12/31/18 06:05 Labs: 03/07/18 09:54 Blood Blood Culture - Final 03/07/18 09:47 Blood Blood Culture - Final 03/07/18 11:25 Sputum - Expectorated Sputum Sputum Culture - Final Klebsiella Pneumoniae 03/07/18 11:25 Sputum - Expectorated Sputum - Final 03/08/18 08:00 Blood Blood Culture - Preliminary 03/08/18 07:43 Blood Blood Culture - Preliminary Laboratory WBC 12.0 X10^3/uL (3.6-10.0) H 03/12/18 06:05 RBC 3.40 X10^6/uL (3.5-5.4) L 03/12/18 06:05 Hgb 10.3 g/dL (12.0-16.0) L 03/12/18 06:05 Hct 30.0 % (36.0-47.0) L 03/12/18 06:05 MCV 88.2 fL (80.0-100.0) 03/12/18 06:05 MCH 30.4 pg (27.0-34.0) 03/12/18 06:05 MCHC 34.5 g/dL (33.0-35.0) 03/12/18 06:05 RDW 15.9 % (11.6-16.5) 03/12/18 06:05 Plt Count 295 X10^3/uL (150.0-450.0) 03/12/18 06:05 Plt Count Comment Adequate (ADEQUATE) 03/12/18 06:05 MPV 8.3 fL (7.4-11.0) 03/12/18 06:05 Neut % (Auto) 92.8 % (42.0-75.0) H 03/12/18 06:05 Lymph % (Auto) 3.2 % (21.0-51.0) L 03/12/18 06:05 [place] % (Auto) 3.9 % (0.0-13.0) 03/12/18 06:05 Eos % (Auto) 0.0 % (0.9-2.9) L 03/12/18 06:05 Baso % (Auto) 0.1 % (0.2-1.0) L 03/12/18 06:05 Neut # (Auto) 11.2 x10^3/uL (2.2-4.8) H 03/12/18 06:05 Lymph # (Auto) 0.4 X10^3/uL (1.3-2.9) L 03/12/18 06:05 [place] # (Auto) 0.5 x10^3/uL (0.3-0.8) 03/12/18 06:05 Eos # (Auto) 0.0 x10^3/uL (0.0-0.2) 03/12/18 06:05 Baso # (Auto) 0.0 X10^3/uL (0.0-0.1) 03/12/18 06:05 Absolute Nucleated RBC 0.0 /100WBC 03/12/18 06:05 Total Counted 100 03/12/18 06:05 Neutrophils % (Manual) 93 % (39-76) H 03/12/18 06:05 Band Neutrophils % 4 % (0-10) 03/11/18 11:15 Lymphocytes % (Manual) 7 % (13-43) L 03/12/18 06:05 Monocytes % (Manual) 1 % (4-9) L 03/11/18 11:15 Metamyelocytes % 1 03/10/18 05:38 Plt Morphology Comment Normal (NORMAL) 03/12/18 06:05 RBC Morphology Normal (NORMAL) 03/12/18 06:05 Sample Site Rr 03/12/18 11:46 ABG pH 7.520 (7.35-7.45) H 03/12/18 11:46 ABG pCO2 37.0 mmHg (35.0-45.0) 03/12/18 11:46 ABG pO2 52.0 mmHg (80.0-100.0) L 03/12/18 11:46 ABG HCO3 30.2 mmol/L (22-26) H* 03/12/18 11:46 ABG O2 Saturation 90.0 % (90-100) 03/12/18 11:46 ABG Base Excess 7.0 mmol/L (-2.0-2.0) H 03/12/18 11:46 Yves Test Pos 03/12/18 11:46 A-a Gradient 558.0 mmHg 03/12/18 11:46 FiO2 92.0 03/12/18 11:46 Blood Gas Comments Pt jose well. cdn 03/12/18 11:46 Sodium 130 mmol/L (136-145) L 03/12/18 06:05 Corrected Sodium 130 mmol/L (136-145) L 03/12/18 06:05 Potassium 4.5 mmol/L (3.5-5.1) 03/12/18 06:05 Chloride 97 mmol/L (98-107) L 03/12/18 06:05 Carbon Dioxide 30.2 mmol/L (21-32) 03/12/18 06:05 BUN 14 mg/dL (7-18) 03/12/18 06:05 Creatinine 0.57 mg/dL (0.55-1.02) 03/12/18 06:05 Est GFR (MDRD) Af Amer > 60 (>60) 03/12/18 06:05 Est GFR (MDRD) Non-Af > 60 (>60) 03/12/18 06:05 Glucose 118 mg/dL (65-99) H 03/12/18 06:05 Lactic Acid 3.6 mmol/L (0.4-2.0) H 03/09/18 08:41 Calcium 8.8 mg/dL (8.5-10.1) 03/12/18 06:05 Corrected Calcium 10.8 mg/dL (8.5-10.1) H 03/12/18 06:05 Magnesium 1.9 mg/dL (1.7-2.9) 03/09/18 05:55 Total Bilirubin 0.40 mg/dL (0.2-1.0) 03/12/18 06:05 AST 24 Units/L (15-37) 03/12/18 06:05 ALT 37 Units/L (12-78) 03/12/18 06:05 Alkaline Phosphatase 161 Units/L (46-116) H 03/12/18 06:05 Creatine Kinase 17 Units/L (26-192) L 03/07/18 09:54 CK-MB (CK-2) < 1.0 ng/mL (0-4.0) 03/07/18 09:54 CK/CKMB % Calc 5.9 % (<4) 03/07/18 09:54 Troponin I < 0.02 ng/mL (0-1.5) 03/07/18 09:54 Total Protein 4.8 g/dL (6.4-8.2) L 03/12/18 06:05 Albumin 1.5 g/dL (3.4-5.0) L 03/12/18 06:05 Globulin 3.3 g/dL (2.5-4.5) 03/12/18 06:05 Albumin/Globulin Ratio 0.5 Ratio (1.1-2.1) L 03/12/18 06:05 Amylase 30 Units/L (25-115) 03/07/18 09:54 Lipase 60 Units/L (73-393) L 03/07/18 09:54 Specimen Type Catherized urine 03/08/18 16:40 Urine Color Yellow (YELLOW) 03/08/18 16:40 Urine Appearance Slightly hazy (CLEAR) 03/08/18 16:40 Urine pH 5.0 (5.0 - 8.0) 03/08/18 16:40 Ur Specific [place] 1.020 (1.000-1.030) 03/08/18 16:40 Urine Protein 1+ (NEGATIVE) 03/08/18 16:40 Urine Glucose (UA) Negative (NEGATIVE) 03/08/18 16:40 Urine Ketones 1+ (NEGATIVE) 03/08/18 16:40 Urine Occult Blood Negative (NEGATIVE) 03/08/18 16:40 Urine Nitrite Negative (NEGATIVE) 03/08/18 16:40 Urine Bilirubin Negative (NEGATIVE) 03/08/18 16:40 Urine Urobilinogen Normal (NORMAL) 03/08/18 16:40 Ur Leukocyte Esterase 1+ (NEGATIVE) 03/08/18 16:40 Urine RBC 0-2 /HPF (NONE SEEN) 03/08/18 16:40 Urine WBC 0-2 /HPF (NONE SEEN) 03/08/18 16:40 Ur Squamous Epith Cells Rare /HPF (NEGATIVE) 03/08/18 16:40 Urine Bacteria Trace /HPF (NEGATIVE) 03/08/18 16:40 Urine Mucus Few /HPF (NEGATIVE) 03/07/18 13:42 Ur Culture Indicated? 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 strict I & O's repeat am labs (4) Generalized weakness Status: Acute
--- NOTE | 2018-03-12 13:28 | PCM.PROG ---
Progress Note - Subjective Subjective: The patient is an 82-year-old white female who is a patient of Dr. Murphy private practice who was admitted on March 07, 2018 with pneumonia. The patient has been on respiratory therapy and supplemental oxygen along with IV antibiotics. The patients repeat chest x-ray with bilateral air space disease which is consistent with pneumonia. There is interval improvement in the infiltrate in the left lung and slight progression in the right lung. T She is currently on IV Fortaz as well as Levaquin and she was previously on iv steroids. Pt family at bedside, states she looks better today compared to Monday afternoon. Pt awake and alert but SOB with increased diminished lung bases. - Past Medical Family Social History Past Med/Fam/Surg Hx: No changes since H&P Allergies: Allergies codeine Allergy (Verified 03/07/18 13:49) hydromorphone [From Dilaudid] Allergy (Verified 03/07/18 13:49) metoclopramide [From Reglan] Allergy (Verified 03/07/18 13:49) - Review of Systems ROS: No change since H&P - Vital Signs and I&O's Vital Signs: Temperature 97.4 F Pulse Rate [Left Brachial] 105 Pulse Rate 95 Respiratory Rate 25 Blood Pressure [Left Arm] 154/73 Blood Pressure [Right Arm] 101/57 Blood Pressure [Left Arm] 101/58 Blood Pressure 114/63 O2 Sat by Pulse Oximetry 95 Intake and Output: Intake & Output 03/10/18 03/11/18 03/12/18 03/13/18 11:59 11:59 11:59 11:59 Intake Total 1664 / 1664 565 / 565 1369 / 1369 Output Total 1950 / 1950 1550 / 1550 1130 / 1130 Balance -286 / -286 -985 / -985 239 / 239 - Physical Exam Oriented: Normal Eyes: Normal Ear: Normal Nose: Normal Throat: Normal Respiratory: Diminished, Wheezes, Rhonchi Cardiovascular: Tachycardia : Normal Auscultation: Bowel Sounds: Normal Tenderness: Normal Skin: Normal Musculoskeletal: Shoulder, Knee, Back:Thoracic, Back:Lumbar, Tender Psychiatric: Normal Mood Description: Calm Affect: Normal Speech Pattern: Appropriate - Laboratory and Diagnostics Result Diagrams: 03/12/18 06:05 03/12/18 06:05 Labs: 03/07/18 09:54 Blood Blood Culture - Final 03/07/18 09:47 Blood Blood Culture - Final 03/07/18 11:25 Sputum - Expectorated Sputum Sputum Culture - Final Klebsiella Pneumoniae 03/07/18 11:25 Sputum - Expectorated Sputum - Final 03/08/18 08:00 Blood Blood Culture - Preliminary 03/08/18 07:43 Blood Blood Culture - Preliminary Laboratory WBC 12.0 X10^3/uL (3.6-10.0) H 03/12/18 06:05 RBC 3.40 X10^6/uL (3.5-5.4) L 03/12/18 06:05 Hgb 10.3 g/dL (12.0-16.0) L 03/12/18 06:05 Hct 30.0 % (36.0-47.0) L 03/12/18 06:05 MCV 88.2 fL (80.0-100.0) 03/12/18 06:05 MCH 30.4 pg (27.0-34.0) 03/12/18 06:05 MCHC 34.5 g/dL (33.0-35.0) 03/12/18 06:05 RDW 15.9 % (11.6-16.5) 03/12/18 06:05 Plt Count 295 X10^3/uL (150.0-450.0) 03/12/18 06:05 Plt Count Comment Adequate (ADEQUATE) 03/12/18 06:05 MPV 8.3 fL (7.4-11.0) 03/12/18 06:05 Neut % (Auto) 92.8 % (42.0-75.0) H 03/12/18 06:05 Lymph % (Auto) 3.2 % (21.0-51.0) L 03/12/18 06:05 [place] % (Auto) 3.9 % (0.0-13.0) 03/12/18 06:05 Eos % (Auto) 0.0 % (0.9-2.9) L 03/12/18 06:05 Baso % (Auto) 0.1 % (0.2-1.0) L 03/12/18 06:05 Neut # (Auto) 11.2 x10^3/uL (2.2-4.8) H 03/12/18 06:05 Lymph # (Auto) 0.4 X10^3/uL (1.3-2.9) L 03/12/18 06:05 [place] # (Auto) 0.5 x10^3/uL (0.3-0.8) 03/12/18 06:05 Eos # (Auto) 0.0 x10^3/uL (0.0-0.2) 03/12/18 06:05 Baso # (Auto) 0.0 X10^3/uL (0.0-0.1) 03/12/18 06:05 Absolute Nucleated RBC 0.0 /100WBC 03/12/18 06:05 Total Counted 100 03/12/18 06:05 Neutrophils % (Manual) 93 % (39-76) H 03/12/18 06:05 Band Neutrophils % 4 % (0-10) 03/11/18 11:15 Lymphocytes % (Manual) 7 % (13-43) L 03/12/18 06:05 Monocytes % (Manual) 1 % (4-9) L 03/11/18 11:15 Metamyelocytes % 1 03/10/18 05:38 Plt Morphology Comment Normal (NORMAL) 03/12/18 06:05 RBC Morphology Normal (NORMAL) 03/12/18 06:05 Sample Site Rr 03/12/18 11:46 ABG pH 7.520 (7.35-7.45) H 03/12/18 11:46 ABG pCO2 37.0 mmHg (35.0-45.0) 03/12/18 11:46 ABG pO2 52.0 mmHg (80.0-100.0) L 03/12/18 11:46 ABG HCO3 30.2 mmol/L (22-26) H* 03/12/18 11:46 ABG O2 Saturation 90.0 % (90-100) 03/12/18 11:46 ABG Base Excess 7.0 mmol/L (-2.0-2.0) H 03/12/18 11:46 Yves Test Pos 03/12/18 11:46 A-a Gradient 558.0 mmHg 03/12/18 11:46 FiO2 92.0 03/12/18 11:46 Blood Gas Comments Pt jose well. cdn 03/12/18 11:46 Sodium 130 mmol/L (136-145) L 03/12/18 06:05 Corrected Sodium 130 mmol/L (136-145) L 03/12/18 06:05 Potassium 4.5 mmol/L (3.5-5.1) 03/12/18 06:05 Chloride 97 mmol/L (98-107) L 03/12/18 06:05 Carbon Dioxide 30.2 mmol/L (21-32) 03/12/18 06:05 BUN 14 mg/dL (7-18) 03/12/18 06:05 Creatinine 0.57 mg/dL (0.55-1.02) 03/12/18 06:05 Est GFR (MDRD) Af Amer > 60 (>60) 03/12/18 06:05 Est GFR (MDRD) Non-Af > 60 (>60) 03/12/18 06:05 Glucose 118 mg/dL (65-99) H 03/12/18 06:05 Lactic Acid 3.6 mmol/L (0.4-2.0) H 03/09/18 08:41 Calcium 8.8 mg/dL (8.5-10.1) 03/12/18 06:05 Corrected Calcium 10.8 mg/dL (8.5-10.1) H 03/12/18 06:05 Magnesium 1.9 mg/dL (1.7-2.9) 03/09/18 05:55 Total Bilirubin 0.40 mg/dL (0.2-1.0) 03/12/18 06:05 AST 24 Units/L (15-37) 03/12/18 06:05 ALT 37 Units/L (12-78) 03/12/18 06:05 Alkaline Phosphatase 161 Units/L (46-116) H 03/12/18 06:05 Creatine Kinase 17 Units/L (26-192) L 03/07/18 09:54 CK-MB (CK-2) < 1.0 ng/mL (0-4.0) 03/07/18 09:54 CK/CKMB % Calc 5.9 % (<4) 03/07/18 09:54 Troponin I < 0.02 ng/mL (0-1.5) 03/07/18 09:54 Total Protein 4.8 g/dL (6.4-8.2) L 03/12/18 06:05 Albumin 1.5 g/dL (3.4-5.0) L 03/12/18 06:05 Globulin 3.3 g/dL (2.5-4.5) 03/12/18 06:05 Albumin/Globulin Ratio 0.5 Ratio (1.1-2.1) L 03/12/18 06:05 Amylase 30 Units/L (25-115) 03/07/18 09:54 Lipase 60 Units/L (73-393) L 03/07/18 09:54 Specimen Type Catherized urine 03/08/18 16:40 Urine Color Yellow (YELLOW) 03/08/18 16:40 Urine Appearance Slightly hazy (CLEAR) 03/08/18 16:40 Urine pH 5.0 (5.0 - 8.0) 03/08/18 16:40 Ur Specific [place] 1.020 (1.000-1.030) 03/08/18 16:40 Urine Protein 1+ (NEGATIVE) 03/08/18 16:40 Urine Glucose (UA) Negative (NEGATIVE) 03/08/18 16:40 Urine Ketones 1+ (NEGATIVE) 03/08/18 16:40 Urine Occult Blood Negative (NEGATIVE) 03/08/18 16:40 Urine Nitrite Negative (NEGATIVE) 03/08/18 16:40 Urine Bilirubin Negative (NEGATIVE) 03/08/18 16:40 Urine Urobilinogen Normal (NORMAL) 03/08/18 16:40 Ur Leukocyte Esterase 1+ (NEGATIVE) 03/08/18 16:40 Urine RBC 0-2 /HPF (NONE SEEN) 03/08/18 16:40 Urine WBC 0-2 /HPF (NONE SEEN) 03/08/18 16:40 Ur Squamous Epith Cells Rare /HPF (NEGATIVE) 03/08/18 16:40 Urine Bacteria Trace /HPF (NEGATIVE) 03/08/18 16:40 Urine Mucus Few /HPF (NEGATIVE) 03/07/18 13:42 Ur Culture Indicated? No/not indicated 03/08/18 16:40 Influenza Type A (PCR) Negative (NEGATIVE) 03/07/18 16:30 Influenza Type B (PCR) Negative (NEGATIVE) 03/07/18 16:30 - Plan (1) Pneumonia Status: Acute Qualifiers: Pneumonia type: due to unspecified organism Laterality: bilateral Lung location: unspecified part of lung Qualified Code(s): J18.9 - Pneumonia, unspecified organism Plan: PNEUMONIA PATHWAY WITH IV FORTAZ, IV LEVAQUIN, RESPIRATORY TX, SUPPLEM ENTAL OXYGEN. 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 strict I & O's repeat am labs (4) Generalized weakness Status: Acute
[2018-03-12] MEDS: PULMICORT NEB TX 0.5 MG NEB SCH ×2 (13:39→20:40)
[2018-03-12] MEDS: NS 1000 ML 1,000 ML IV SCH (16:19)
[2018-03-12] MEDS: ELAVIL PO SCH (16:20)
[2018-03-12] MEDS: ULTRAM PO PRN (17:05)
[2018-03-12] MEDS ORDERED: MORPHINE SULFATE INJ 2 MG INJ ONE (18:52)
[2018-03-12] MEDS: ZOFRAN INJ 4 MG VIAL IVP PRN (18:55)
[2018-03-12] MEDS: MORPHINE SULFATE INJ 2 MG INJ IVP PRN (18:55)
[2018-03-12] MEDS: MILK OF MAGNESIA PO SCH (20:46)
[2018-03-13] MEDS: MORPHINE SULFATE INJ 2 MG INJ IVP PRN ×5 (01:48→20:10)
[2018-03-13] MEDS ORDERED: ATIVAN INJ 2 MG VIAL IVP ONE (03:29)
[2018-03-13] MEDS ORDERED: ATIVAN INJ 2 MG VIAL ONE ×2 (03:31→09:15)
[2018-03-13] MEDS: SYNTHROID 50 mcg TAB PO SCH (05:27)
[2018-03-13 06:16] LABS: BASOPHILS # (AUTO) 0.1 X10^3/uL (0.0-0.1); BASOPHILS % (AUTO) 0.6 % (0.2-1.0); EOSINOPHILS # (AUTO) 0.1 x10^3/uL (0.0-0.2); EOSINOPHILS % (AUTO) 0.5 % (0.9-2.9); HEMATOCRIT 36.3 % (36.0-47.0); HEMOGLOBIN 12.2 g/dL (12.0-16.0); LYMPHOCYTES # (AUTO) 0.7 X10^3/uL (1.3-2.9); MEAN CORPUSCULAR HGB CONC 33.5 g/dL (33.0-35.0); MEAN CORPUSCULAR VOLUME 89.5 fL (80.0-100.0); MEAN PLATELET VOLUME 8.5 fL (7.4-11.0); MONOCYTES # (AUTO) 0.4 x10^3/uL (0.3-0.8); MONOCYTES % (AUTO) 2.1 % (0.0-13.0); NEUTROPHILS # (AUTO) 16.6 x10^3/uL (2.2-4.8); NEUTROPHILS % (AUTO) 92.8 % (42.0-75.0); PLATELET COUNT 254 X10^3/uL (150.0-450.0); RED BLOOD COUNT 4.06 X10^6/uL (3.5-5.4); RED CELL DISTRIBUTION WIDTH 16.2 % (11.6-16.5); WHITE BLOOD COUNT 17.8 X10^3/uL (3.6-10.0)
[2018-03-13 06:25] LABS: ALANINE AMINOTRANSFERASE 34 Units/L (12-78); ALBUMIN 1.7 g/dL (3.4-5.0); ALKALINE PHOSPHATASE 215 Units/L (46-116); ASPARTATE AMINO TRANSFERASE 29 Units/L (15-37); BLOOD UREA NITROGEN 15 mg/dL (7-18); CALCIUM 9.2 mg/dL (8.5-10.1); CARBON DIOXIDE 27.4 mmol/L (21-32); CHLORIDE 96 mmol/L (98-107); CREATININE 0.68 mg/dL (0.55-1.02); SODIUM 130 mmol/L (136-145); TOTAL PROTEIN 5.4 g/dL (6.4-8.2); eGFR NON BLACK RACES > 60 (>60)
[2018-03-13 07:00] LABS: BAND NEUTROPHILS % 2 % (0-10); PLATELET MORPHOLOGY COMMENT NORMAL (NORMAL)
[2018-03-13] MEDS ORDERED: NORVASC TAB 2.5 MG ONE (08:53)
[2018-03-13] MEDS ORDERED: NS 100 ML IV 0 ML IV ONE (08:55)
[2018-03-13] MEDS: FORTAZ or TAZICEF VIAL INJ IVP SCH ×2 (09:00→21:20)
[2018-03-13] MEDS: PULMICORT NEB TX 0.5 MG NEB SCH ×2 (09:10→21:28)
[2018-03-13] MEDS: DUONEB 0.5 MG/3 MG NEB SCH ×5 (09:10→21:26)
[2018-03-13] MEDS: LEVAQUIN PREMIX IV 750 MG 750 MG/150 ML BAG IV SCH (09:21)
[2018-03-13] MEDS: LOVENOX INJ 40 MG SYR SC SCH ×2 (09:31→21:20)
[2018-03-13] MEDS: COLACE CAP 100 MG PO SCH ×2 (09:34→21:20)
[2018-03-13] MEDS: ROBITUSSIN DM PO SCH ×4 (09:34→21:20)
[2018-03-13] MEDS: ATIVAN INJ 2 MG VIAL IVP PRN ×3 (09:35→21:15)
[2018-03-13] MEDS: PROTONIX INJ 40 MG VIAL IVP SCH ×2 (09:42→21:21)
[2018-03-13] MEDS: LEVSIN/MAALOX/LIDOC VISC PO SCH ×4 (11:55→21:21)
[2018-03-13] MEDS: NORVASC TAB 2.5 MG PO SCH (11:55)
[2018-03-13] MEDS: NS 1000 ML 1,000 ML IV SCH ×2 (12:53→16:47)
[2018-03-13] MEDS: ELAVIL PO SCH (16:46)
[2018-03-13] MEDS ORDERED: HALDOL INJ IM PRN (18:29)
[2018-03-13] MEDS ORDERED: DIFLUCAN 100 MG IV (MIX by PHARMACY)* 100 MG/50 ML BAG IV SCH (18:38)
[2018-03-13] MEDS ORDERED: DIFLUCAN 200 MG IV PREMIX* 200 MG/100 ML BAG IV ONE (18:41)
[2018-03-13] MEDS: HALDOL INJ IVP PRN ×2 (20:32→23:00)
[2018-03-13 20:53] VITALS: BP 129/81
[2018-03-13] MEDS: MILK OF MAGNESIA PO SCH (21:21)
[2018-03-13] MEDS ORDERED: BENADRYL INJ 50 MG VIAL ONE (23:20)
[2018-03-13] MEDS ORDERED: BENADRYL INJ 50 MG VIAL IVP ONE (23:21)
[2018-03-13] MEDS ORDERED: MORPHINE SULFATE INJ 2 MG INJ IVP PRN (23:22)
[2018-03-13] MEDS ORDERED: HALDOL INJ IVP PRN (23:23)
[2018-03-13] MEDS ORDERED: BENADRYL INJ 50 MG VIAL IVP PRN (23:36)
[2018-03-14] MEDS ORDERED: DIFLUCAN 100 MG IV (MIX by PHARMACY)* 100 MG/50 ML BAG IV SCH (09:00)
== END 2018-03-14 04:00 | disposition expired | DRG 194 ==
LOC: ER 09:21 → MED/SURG 11:29 → MERGE 11:29 → MED/SURG 11:57 → ICU 03-08 15:34
PROVIDERS: ADMIT Internal Medicine; ATTEND Internal Medicine
DX: I10 Essential (primary) hypertension; R53.1 Weakness; R26.89 Other abnormalities of gait and mobility; I46.9 Cardiac arrest, cause unspecified; M06.80 Other specified rheumatoid arthritis, unspecified site; E87.1 Hypo-osmolality and hyponatremia; R11.2 Nausea with vomiting, unspecified; J18.8 Other pneumonia, unspecified organism; Z66 Do not resuscitate; I87.2 Venous insufficiency (chronic) (peripheral)
CPT/HCPCS: 36415; 36556; 36600; 71010; 71045; 80053; 81001; 82150; 82550; 82553; 82803; 83605; 83690; 83735; 84484; 85025; 87040; 87070; 87077; 87186; 87205; 87502; 93005; 94640; 94669; 94760; 96365; 96374; 97162; 97167; 99231; 99282; 99284; A4222; C9113; J0713; J1200; J1450; J1630; J1650; J1940; J1956; J2060; J2175; J2270; J2405; J2920; J2930; J3490; J7030; J7050; J7620; J7626